=== PATIENT | male | born 1960 | race Caucasian/White ===

== ENCOUNTER 2020-02-28 13:17 | Inpatient (IN) | payer MEDICAID ==
[~2020-02-28] VITALS: Ht 170.2 cm; Wt 81.6 kg
--- NOTE | 2020-02-28 13:17 | NUR ---
PT BIBRA FROM HOME C/O SOB FOR 7 DAYS +COVID LAST WEEKEND PER PT, PT IS AAOX4, NOTED RESPIRATORY DISTRESS, HOOKED TO HIGH FLOW NC AND NURSE RN BSN, KEPT RESTED AND COMFORTABLE. WILL CONTINUE TO MONITOR.
--- NOTE | 2020-02-28 13:30 | NUR ---
IV LINE ESTABLISHED LAB DRAWN AND SENT TO LAB.
--- NOTE | 2020-02-28 13:39 | NUR ---
SEEN AND EXAMINED BY .
--- NOTE | 2020-02-28 13:40 | NUR ---
RT AT BEDSIDE FOR BIPAP SET UP.
[2020-02-28] MEDS ORDERED: ACETAMINOPHEN ES 500 MG TABLET ONE (13:41)
[2020-02-28] MEDS ORDERED: DEXAMETHASONE SOD PHOSPHATE 10 MG/ML VIAL ONE (13:41)
--- NOTE | 2020-02-28 13:45 | NUR ---
HARDENING MACHINE OPERATOR AT BEDSIDE FOR XRAY.
[2020-02-28] MEDS ORDERED: ACETAMINOPHEN ES 500 MG TABLET PO ONE (14:00)
[2020-02-28] MEDS ORDERED: DEXAMETHASONE SOD PHOSPHATE 10 MG/ML VIAL IV ONE (14:00)
[2020-02-28] MEDS ORDERED: IV NS 0.9% 1,000 ML IV ONE (14:00)
[2020-02-28 14:02] LABS: BASOPHILS # (AUTO) 0.2 /CMM (0.0-0.2); BASOPHILS % (AUTO) 1.3 % (0.0-2.0); HEMATOCRIT 41 % (39-51); HEMOGLOBIN 13.2 g/dL (13.5-17.5); LYMPHOCYTES # (AUTO) 0.3 /CMM (0.8-4.8); LYMPHOCYTES % (AUTO) 1.6 % (20.0-44.0); MEAN CORPUSCULAR HGB CONC 33 g/dl (31.0-36.0); MEAN CORPUSCULAR VOLUME 88 fL (80-96); MONOCYTES # (AUTO) 0.6 /CMM (0.1-1.30); MONOCYTES % (AUTO) 3.2 % (2.0-12.0); NEUTROPHILS # (AUTO) 16.8 /CMM (1.8-8.9); NEUTROPHILS % (AUTO) 93.9 % (43.0-81.0); PLATELET COUNT (AUTO) 324 /CMM (150-450); RED BLOOD CELL COUNT(AUTO) 4.61 MIL/uL (4.5-6.0); WHITE BLOOD COUNT (AUTO) 17.9 K/uL (4.3-11.0)
[2020-02-28 14:15] LABS: CALCIUM, SERUM 8.6 mg/dL (8.5-10.1); CREATININE 1.4 mg/dL (0.6-1.3); POTASSIUM 3.8 mmol/L (3.5-5.1)
[2020-02-28 14:28] LABS: ALBUMIN 2.3 g/dL (3.4-5.0); BILIRUBIN,TOTAL 0.5 mg/dL (0.2-1.0); TOTAL PROTEIN, SERUM 7.9 g/dL (6.4-8.2)
[2020-02-28] MEDS ORDERED: AZITHROMYCIN 500 MG in IV D5W 250 ML IV ONE (14:30)
[2020-02-28] MEDS ORDERED: CEFTRIAXONE 1GM BAG (ER ONLY) 50 ML IV ONE (14:30)
[2020-02-28] MEDS ORDERED: CEFTRIAXONE 1GM BAG (ER ONLY) 1 GM/50 ML PIGGYBACK IV ONE (14:30)
[2020-02-28] MEDS ORDERED: IV NS 0.9% 500 ML IV ONE (14:30)
[2020-02-28] MEDS ORDERED: ACETAMINOPHEN 650 MG/SUPP.RECT RC ONE (14:30)
--- NOTE | 2020-02-28 15:21 | NUR ---
[facility] CALLED STAFF PHYSICAL THERAPY ASSISTANT PAGED.
[2020-02-28 15:35] LABS: ABG BASE EXCESS -5.9 mmol/L; ABG OXYGEN SATURATION 97.6 % (92.0-98.5); ABG PCO2 24.6 mmHg (35.0-45.0); ABG PH 7.443 (7.350-7.450); ABG PO2 114.5 mmHg (75.0-100.0); AaDO2 573.9 mmHg; COHb 0.5 % (0.5-1.5); MetHb 0.2 % (0.0-1.5); O2Hb 96.9 % (94.0-97.0); SITE, ABG Right Radial; VENT MODE, BG ST 20/8 100%
--- NOTE | 2020-02-28 15:44 | NUR ---
PT IS PLACED BACK ON HIGH FLOW NASAL CAN PER .
[2020-02-28 15:52] LABS: D-DIMER 3.22 mg/L(FEU (0.17-0.50)
--- NOTE | 2020-02-28 16:09 | NUR ---
LAB CALLED LACTIC ACID 3.6 VASQUEZ INFORMED.
[2020-02-28 16:22] LABS: CREATINE KINASE, TOTAL 132 U/L (39-308); FERRITIN 657 ng/mL (8-388)
[2020-02-28 16:44] LABS: C-REACTIVE PROTEIN 36.4 mg/dL (0.0-0.9)
[2020-02-28] MEDS ORDERED: HYDROCODONE/APAP 5/325MG TABLET PO PRN (17:00)
[2020-02-28] MEDS ORDERED: MAGNESIUM HYDROXIDE 30 ML UDC PO PRN (17:00)
[2020-02-28] MEDS ORDERED: ZOLPIDEM TARTRATE 5 MG TABLET PO PRN (17:00)
[2020-02-28] MEDS ORDERED: APIXABAN 2.5 MG TABLET PO SCH (17:00)
[2020-02-28] MEDS ORDERED: Z GUARD REMEDY 2 OZ OINT TP PRN (17:00)
[2020-02-28] MEDS ORDERED: ONDANSETRON HCL/PF 4 MG/2 ML VIAL IVP PRN (17:00)
--- NOTE | 2020-02-28 18:04 | NUR ---
Jose dubon in ED - 02/28/20 at 1811 by KAREN SARITHA NOT GIVEN MEDS NOT AVAILABLE PER DEREK AT PHARMACY.
--- NOTE | 2020-02-28 18:11 | NUR ---
ELIQUIS NOT GIVEN PT IS ON BIPAP.
[2020-02-28 18:54] LABS: BILIRUBIN,DIRECT 0.4 mg/dL (0.0-0.2)
--- NOTE | 2020-02-28 19:49 | NUR ---
PT REC'D ON BIPAP, PT HERE FOR SOB, COVID+ DIAGNOSED OSH., PT AAOX4, NOTED TACHYPNIC, ON BIPAP SAT ABOVE 95-98%, PT VSS. WCTM
--- NOTE | 2020-02-28 20:00 | NUR ---
MICKEY VILLAR MADE AWARE REGARDING ELIQUIS NON ADMINISTRATION, NEW ORDER FOR HEPARIN WILL BE ADDED PER PRIYA
[2020-02-28] MEDS ORDERED: HEPARIN SODIUM, PORCINE 5000 UNITS/1 ML VIAL ONE (22:43)
[2020-02-29] MEDS: HEPARIN SODIUM, PORCINE 5000 UNITS/1 ML VIAL SQ SCH ×2 (00:07→08:22)
[2020-02-29 03:44] LABS: BASOPHILS % (AUTO) 0.2 % (0.0-2.0); HEMATOCRIT 38 % (39-51); HEMOGLOBIN 12.4 g/dL (13.5-17.5); LYMPHOCYTES # (AUTO) 0.4 /CMM (0.8-4.8); LYMPHOCYTES % (AUTO) 2.7 % (20.0-44.0); MEAN CORPUSCULAR HGB CONC 33 g/dl (31.0-36.0); MEAN CORPUSCULAR VOLUME 89 fL (80-96); MONOCYTES # (AUTO) 0.7 /CMM (0.1-1.30); MONOCYTES % (AUTO) 4.2 % (2.0-12.0); NEUTROPHILS # (AUTO) 14.8 /CMM (1.8-8.9); NEUTROPHILS % (AUTO) 92.9 % (43.0-81.0); PLATELET COUNT (AUTO) 264 /CMM (150-450); RED BLOOD CELL COUNT(AUTO) 4.26 MIL/uL (4.5-6.0); WHITE BLOOD COUNT (AUTO) 15.9 K/uL (4.3-11.0)
[2020-02-29 03:54] LABS: CALCIUM, SERUM 8.7 mg/dL (8.5-10.1); CREATININE 1.3 mg/dL (0.6-1.3); MAGNESIUM 2.7 mg/dL (1.8-2.4); PHOSPHORUS 3.6 mg/dL (2.5-4.9); POTASSIUM 4.4 mmol/L (3.5-5.1)
[2020-02-29 04:22] LABS: C-REACTIVE PROTEIN 57.3 mg/dL (0.0-0.9)
--- NOTE | 2020-02-29 07:30 | NUR ---
Received patient in bed, awake, and alert, able to make needs known. Verbally responsive. On bipap tolerated well, no labored breathing noted. Connected to the monitor and pulse ox. Kept comfortable, will continue to monitor accordingly.
[2020-02-29] MEDS ORDERED: DEXAMETHASONE SOD PHOSPHATE 10 MG/ML VIAL ONE (07:47)
[2020-02-29] MEDS ORDERED: HEPARIN SODIUM, PORCINE 5000 UNITS/1 ML VIAL ONE (07:47)
--- NOTE | 2020-02-29 08:15 | NUR ---
RT Pt taken off BiPAP and placed on high flow nasal cannula 60L and 100% FiO2. Pt is awake and alert and looks comfortable on high flow. No SOB or respiratory distress noted at this time. Addendum: 02/29/20 at 0827 by CAROLE CALVIN RT Amended: Links added.
[2020-02-29] MEDS: DEXAMETHASONE SOD PHOSPHATE 10 MG/ML VIAL IV SCH (08:21)
--- NOTE | 2020-02-29 08:33 | NUR ---
Patient o2 titrated down. d/c bipap. Clinically holding on HFNC 60L/100% with 93% o2 saturation
--- NOTE | 2020-02-29 09:07 | NUR ---
RT Pt placed with dual set up HFNC and non-rebreather due to SpO2 at 88%. With addition of 15L non-rebreather pt SpO2 is now 91%. Addendum: 02/29/20 at 0909 by CAROLE CALVIN RT Amended: Links added.
[2020-02-29] MEDS: IV NS 0.9% 1,000 ML IV PRN (09:30)
[2020-02-29 10:38] LABS: ABG BASE EXCESS -2.1 mmol/L; ABG OXYGEN SATURATION 95.2 % (92.0-98.5); ABG PCO2 27.8 mmHg (35.0-45.0); ABG PH 7.478 (7.350-7.450); ABG PO2 75.8 mmHg (75.0-100.0); AaDO2 609.4 mmHg; COHb 0.1 % (0.5-1.5); MetHb 0.1 % (0.0-1.5); SITE, ABG Right Radial; VENT MODE, BG HFNC 60L/100% + NRB 15L
[2020-02-29] MEDS ORDERED: DEXAMETHASONE SOD PHOSPHATE 6 MG in IV D5W 50 ML IV SCH (12:00)
[2020-02-29] MEDS ORDERED: REMDESIVIR (CHARGED) 200 MG, *LOADING DOSE 1 EA in IV NS 0.9% 210 ML IV ONE (12:00)
[2020-02-29] MEDS: AZITHROMYCIN 500 MG in IV D5W 250 ML IV SCH (13:00)
[2020-02-29] MEDS: CEFTRIAXONE 1 G in IV D5W 50 ML IV SCH (14:00)
[2020-02-29] MEDS ORDERED: HYDROCODONE/APAP 5/325MG TABLET ONE (15:52)
[2020-02-29] MEDS: APIXABAN 5 MG TABLET PO SCH (16:44)
--- NOTE | 2020-02-29 23:04 | NUR ---
REPORT GIVEN TO ALIRIO WAGGONER AT ICU FOR LISA.
[2020-02-29 23:27] VITALS: BP 137/74
--- NOTE | 2020-02-29 23:28 | NUR ---
PATIENT TAKEN UP TO ASSIGNED ROOM FOR LISA.
[2020-03-01] VITALS (24 sets, daily range): BP systolic 123–157; BP diastolic 70–97
[2020-03-01] MEDS: IV NS 0.9% 1,000 ML IV PRN (00:23)
--- NOTE | 2020-03-01 01:00 | NUR ---
RN NOTES ADMITTED PATIENT AOX4. WITH HIFLOW O2 @ 60 L AND FIO2 100% WITH NON REBREATHER MASK ON @ 15LPM TOLERATED WELL. BREATHING EVEN AND UNLBORED DENIES SOB . SATURATION BETWEEN 88-92 %. AFEBRILE. VSS . PATIENT USED URINAL FOR BLADDER. AMBULATE WITH STAND BY ASSIST. IV SITE ON LAC AND RH INTACT AND PATENT STARTED WITH NS @ 100 ML/HR INTACT AND PATENT. KEPT PT CLEAN AND DRY. CALL LIGHT KEPT WITHIN EASY REACH INSTRUCTED PROVIDED.
[2020-03-01] MEDS: ACETAMINOPHEN 325 MG TABLET PO PRN (01:12)
[2020-03-01 04:16] LABS: BASOPHILS % (AUTO) 0.1 % (0.0-2.0); HEMATOCRIT 37 % (39-51); LYMPHOCYTES # (AUTO) 0.4 /CMM (0.8-4.8); LYMPHOCYTES % (AUTO) 2.1 % (20.0-44.0); MEAN CORPUSCULAR HGB CONC 32 g/dl (31.0-36.0); MEAN CORPUSCULAR VOLUME 88 fL (80-96); MONOCYTES # (AUTO) 0.6 /CMM (0.1-1.30); MONOCYTES % (AUTO) 3.2 % (2.0-12.0); NEUTROPHILS # (AUTO) 18.2 /CMM (1.8-8.9); NEUTROPHILS % (AUTO) 94.6 % (43.0-81.0); PLATELET COUNT (AUTO) 279 /CMM (150-450); WHITE BLOOD COUNT (AUTO) 19.2 K/uL (4.3-11.0)
[2020-03-01 04:32] LABS: ALBUMIN 1.8 g/dL (3.4-5.0); BILIRUBIN,DIRECT 0.2 mg/dL (0.0-0.2); BILIRUBIN,TOTAL 0.2 mg/dL (0.2-1.0); CALCIUM, SERUM 8.1 mg/dL (8.5-10.1); CREATININE 1.1 mg/dL (0.6-1.3); POTASSIUM 3.6 mmol/L (3.5-5.1); TOTAL PROTEIN, SERUM 6.3 g/dL (6.4-8.2)
--- NOTE | 2020-03-01 07:00 | NUR ---
RN NOTES PATIENT TOLERATED HFLOW O2 WITH NRB SATURATION BETWEEN 88-96%. AFEBRILE. NO SOB OR ACUTE RESPIRATORY DISTRESS. DENIES PAIN AFTER TYLENOL ADMNISTERED. NO MORE HEADACHES COMPLAINED. CONTINUE ON IVF ORDERED. KEPT PT CLEAN AND DRY. CALL LIGHT KEPT WITHIN EASY REACH CONTINUOUSLY REMINDED TO USED FOR ASSISTANCE. ISOLATION PRECAUTION FOR COVID 19 STRICTLY OBSERVED.
--- NOTE | 2020-03-01 07:30 | NUR ---
RN OPENING NOTES PATIENT PRESENT IN BED, A/OX4, HOB ELEVATED, SITTING COMFORTABLY, DENIES PAIN OR DISCOMFORT, ON HIGH FLOW NC @ 60L AND NON-REBREATHER MASK @15 COLE/MIN, TOLERATING WELL, SPO2 IS 91-94%, NO SOB OR DISTRESS NOTED, URINAL AND COMMODE AT BED SITE, NST ON TELE -MONITOR, IV LINES ON R HAND AND L AC, BOTH PATENT, FLUSHED AND INTACT, SAFETY MEASURES IN PLACE, CALL LIGHT IN REACH, HOB ELEVATED, BED IS LOCKED, IN LOWEST POSITION, WILL CONT TO MONITOR
[2020-03-01] MEDS: DEXAMETHASONE SOD PHOSPHATE 10 MG/ML VIAL IV SCH (08:09)
[2020-03-01] MEDS: APIXABAN 5 MG TABLET PO SCH ×2 (08:12→17:25)
[2020-03-01] MEDS ORDERED: REMDESIVIR (CHARGED) 100 MG in IV NS 0.9% 230 ML IV SCH (10:00)
[2020-03-01] MEDS: REMDESIVIR (CHARGED) 100 MG in IV NS 0.9% 100 ML IV SCH (11:56)
[2020-03-01] MEDS: AZITHROMYCIN 500 MG in IV D5W 250 ML IV SCH (13:07)
[2020-03-01] MEDS: CEFTRIAXONE 1 G in IV D5W 50 ML IV SCH (13:59)
--- NOTE | 2020-03-01 19:19 | NUR ---
RN CLOSING NOTES PATIENT REMAINS IN ROOM, TOLERATING SETTINGS WELL, CLEANED, EDUCATION PROVIDED, MEDICATIONS GIVEN, WILL ENDORSE TO PM SHIFT RN FOR LISA
[2020-03-02] VITALS (30 sets, daily range): BP systolic 74–167; BP diastolic 44–109
[2020-03-02 04:19] LABS: BASOPHILS % (AUTO) 0.1 % (0.0-2.0); HEMATOCRIT 42 % (39-51); HEMOGLOBIN 13.7 g/dL (13.5-17.5); LYMPHOCYTES # (AUTO) 0.4 /CMM (0.8-4.8); LYMPHOCYTES % (AUTO) 2.4 % (20.0-44.0); MEAN CORPUSCULAR HGB CONC 32 g/dl (31.0-36.0); MEAN CORPUSCULAR VOLUME 88 fL (80-96); MONOCYTES # (AUTO) 0.3 /CMM (0.1-1.30); MONOCYTES % (AUTO) 1.8 % (2.0-12.0); NEUTROPHILS # (AUTO) 16.7 /CMM (1.8-8.9); NEUTROPHILS % (AUTO) 95.7 % (43.0-81.0); PLATELET COUNT (AUTO) 246 /CMM (150-450); RED BLOOD CELL COUNT(AUTO) 4.78 MIL/uL (4.5-6.0); WHITE BLOOD COUNT (AUTO) 17.5 K/uL (4.3-11.0)
[2020-03-02 04:39] LABS: BILIRUBIN,DIRECT 0.3 mg/dL (0.0-0.2); BILIRUBIN,TOTAL 0.5 mg/dL (0.2-1.0); CALCIUM, SERUM 8.1 mg/dL (8.5-10.1); CREATININE 1.1 mg/dL (0.6-1.3); POTASSIUM 3.8 mmol/L (3.5-5.1); TOTAL PROTEIN, SERUM 6.8 g/dL (6.4-8.2)
--- NOTE | 2020-03-02 07:25 | NUR ---
RN NOTES PATIENT REMAINED CALM AND COOPERATIVE. NOTED THIS MORNIGN THAT PATIENT IS DESATING AND REMAINED ON 82-86% INFORMED AMADEO WITH NEW ORDER OF STAT CXR AND ABG.
--- NOTE | 2020-03-02 07:30 | NUR ---
RN OPENING NOTES PATIENT PRESENT IN BED, A/OX4, HOB ELEVATED, SITTING COMFORTABLY, DENIES PAIN OR DISCOMFORT, ON HIGH FLOW NC @ 60L AND NON-REBREATHER MASK @15 COLE/MIN, TOLERATING WELL, SPO2 IS 84-89, LABORED RESPIRATIONS NOTED, URINAL AND COMMODE AT BED SITE, NST ON TELE -MONITOR, IV LINES ON R HAND AND L AC, BOTH PATENT, FLUSHED AND INTACT, SAFETY MEASURES IN PLACE, CALL LIGHT IN REACH, HOB ELEVATED, BED IS LOCKED, IN LOWEST POSITION, WILL CONT TO MONITOR
[2020-03-02 08:29] LABS: ABG BASE EXCESS -1.3 mmol/L; ABG PCO2 24.9 mmHg (35.0-45.0); ABG PH 7.521 (7.350-7.450); ABG PO2 54.6 mmHg (75.0-100.0); AaDO2 633.5 mmHg; COHb 0.8 % (0.5-1.5); O2Hb 90.3 % (94.0-97.0); SITE, ABG Left Radial; VENT MODE, BG HFNC 60L + NRB (DUAL SETU
[2020-03-02] MEDS: DEXAMETHASONE SOD PHOSPHATE 10 MG/ML VIAL IV SCH (08:40)
[2020-03-02] MEDS: APIXABAN 5 MG TABLET PO SCH ×2 (08:41→16:53)
[2020-03-02] MEDS: AZITHROMYCIN 500 MG in IV D5W 250 ML IV SCH (11:26)
[2020-03-02] MEDS: REMDESIVIR (CHARGED) 100 MG in IV NS 0.9% 100 ML IV SCH (13:29)
[2020-03-02] MEDS: CEFTRIAXONE 1 G in IV D5W 50 ML IV SCH (14:36)
[2020-03-02 16:18] LABS: ABG BASE EXCESS -0.4 mmol/L; ABG OXYGEN SATURATION 84.4 % (92.0-98.5); ABG PCO2 29.7 mmHg (35.0-45.0); ABG PH 7.485 (7.350-7.450); ABG PO2 45.8 mmHg (75.0-100.0); AaDO2 637.5 mmHg; COHb 0.8 % (0.5-1.5); MetHb 0.1 % (0.0-1.5); O2Hb 83.6 % (94.0-97.0); SITE, ABG Left Radial
--- NOTE | 2020-03-02 16:31 | NUR ---
RN NOTE Patient's SPO2 went down to 83-87% through the day. Per D Peleg patient required to have intubation Patient is aware, agreed , education provided, contacted family . Dr Mullins and RT team at bed site, initiating intubation
[2020-03-02] MEDS: PROPOFOL 100 ML IV PRN ×4 (16:43→23:05)
[2020-03-02 17:21] LABS: ABG BASE EXCESS -4.7 mmol/L; ABG OXYGEN SATURATION 98.3 % (92.0-98.5); ABG PCO2 48.7 mmHg (35.0-45.0); ABG PO2 135.7 mmHg (75.0-100.0); AaDO2 528.6 mmHg; COHb 0.6 % (0.5-1.5); MetHb 0.2 % (0.0-1.5); O2Hb 97.5 % (94.0-97.0); SITE, ABG Left Radial; VENT MODE, BG AC 24 450 +12 100%
--- NOTE | 2020-03-02 17:58 | NUR ---
fever 101.1 will administer Tylenol prn
[2020-03-02] MEDS: ACETAMINOPHEN 325 MG TABLET PO PRN (17:59)
[2020-03-02] MEDS ORDERED: ROCURONIUM BROMIDE 50 MG/5 ML IV ONE (18:51)
[2020-03-02] MEDS ORDERED: ETOMIDATE 2 MG/ML VIAL IV ONE (18:51)
[2020-03-02] MEDS ORDERED: PROPOFOL 200 MG/20 ML VIAL IV ONE (18:51)
--- NOTE | 2020-03-02 18:59 | NUR ---
BP NOTED TO BE DECREASED, 77/46, HR 103, CONTATCTED DR CASTANEDA, PLACED ORDER FOR AJIT, WILL CONTACT PHARMACY STAT
--- NOTE | 2020-03-02 19:00 | NUR ---
RN NOTE RECEIVED PT IN BED, SEDATED. PATIENT IN NO S/SX OF ACUTE DISTRESS AT THIS TIME. PATIENT'S BREATHING IS EVEN AND UNLABORED. PATIENT IS INTUBATED/ET TUBE CONNECTED TO MECHANICAL VENT WITH SETTINGS PRESCRIBED, TOLERATING WELL, SATURATION AT 97%. PATIENT IS SR ON THE MONITOR, SR IS 82. NOTED IV SITE AT RH 18G, AND LAC 20G, PATENT AND FLUSHING WELL, NO S/S OF INFECTION OR INFILTRATION, WITH DIPRIVAN INFUSING AT 75 MCG, AND AJIT AT 1 MCG. ORDOÑEZ CATHETER CONNECTED TO URINE BAG IN PLACE, DRAINING TO A CLEAR, YELLOW OUTPUT. SAFETY MEASURES IMPLEMENTED. PATIENT BED ALARM IS ON. HEAD OF BED ELEVATED. BED IS LOCKED, IN LOWEST POSITION AND SIDE RAILS UP. CALL LIGHT WITHIN REACH OF THE PATIENT. WILL CONTINUE TO MONITOR AND REASSESS FOR ANY CHANGES.
--- NOTE | 2020-03-02 19:33 | NUR ---
RN CLOSING NOTES PATIENT PRESENT IN BED SITE, INTUBATED AND SEDATED, TOLERATING VENT SETTINGS WELL, SPO2 IS 98%, RESPIRATIONS EVEN, HR IS DECREASED, INITIATING AJIT DRIP, COMFORT NEEDS ATTENDED, SAFETY MEASURES IN PLACE, ENDORSED TO PM SHIFT RN FOR LISA
[2020-03-02] MEDS: PHENYLEPHRINE 100 MG in IV NS 0.9% 240 ML IV PRN (20:25)
--- NOTE | 2020-03-02 21:40 | NUR ---
RN NOTE NOTED DR LA'S ORDER OF TV 475. ADVISED BY RT, [facility] VENT NOT CONFIGURED TO DO BY 5'S. DR CHILDS WAS NOTIFIED, RESPONDED WITH ORDERS TO CHANGE TV TO 470. ALSO RECEIVED ORDERS FOR PICC LINE INSERTION. LARRIMAN MADE AWARE.
[2020-03-03] VITALS (24 sets, daily range): BP systolic 81–128; BP diastolic 51–78
[2020-03-03] MEDS: ACETAMINOPHEN 325 MG TABLET PO PRN (01:48)
[2020-03-03] MEDS: PROPOFOL 100 ML IV PRN ×6 (02:43→20:30)
[2020-03-03 04:10] LABS: ALBUMIN 1.8 g/dL (3.4-5.0); BILIRUBIN,DIRECT 0.5 mg/dL (0.0-0.2); BILIRUBIN,TOTAL 0.6 mg/dL (0.2-1.0); CALCIUM, SERUM 8.5 mg/dL (8.5-10.1); CREATININE 1.5 mg/dL (0.6-1.3); POTASSIUM 4.1 mmol/L (3.5-5.1); TOTAL PROTEIN, SERUM 6.6 g/dL (6.4-8.2)
[2020-03-03 04:56] LABS: BASOPHILS % (AUTO) 0.1 % (0.0-2.0); HEMATOCRIT 42 % (39-51); HEMOGLOBIN 13.6 g/dL (13.5-17.5); LYMPHOCYTES # (AUTO) 0.5 /CMM (0.8-4.8); LYMPHOCYTES % (AUTO) 1.9 % (20.0-44.0); MEAN CORPUSCULAR HGB CONC 32 g/dl (31.0-36.0); MEAN CORPUSCULAR VOLUME 89 fL (80-96); MONOCYTES # (AUTO) 0.3 /CMM (0.1-1.30); MONOCYTES % (AUTO) 1.4 % (2.0-12.0); NEUTROPHILS # (AUTO) 24.6 /CMM (1.8-8.9); NEUTROPHILS % (AUTO) 96.6 % (43.0-81.0); PLATELET COUNT (AUTO) 257 /CMM (150-450); RED BLOOD CELL COUNT(AUTO) 4.76 MIL/uL (4.5-6.0); WHITE BLOOD COUNT (AUTO) 25.4 K/uL (4.3-11.0)
--- NOTE | 2020-03-03 06:00 | NUR ---
RN NOTE TELEPHONE CALL RECEIVED FROM BRAD SMALL, PATIENT'S SON, GAVE HIS CONSENT FOR PATIENT TO HAVE PICC LINE INSERTION. ATTENDING PSYCHIATRIST MADE AWARE. CONSENT SIGNED AND PLACED IN CHART.
[2020-03-03 07:48] LABS: ABG BASE EXCESS -3.2 mmol/L; ABG OXYGEN SATURATION 96.9 % (92.0-98.5); ABG PCO2 33.4 mmHg (35.0-45.0); ABG PH 7.409 (7.350-7.450); AaDO2 407.3 mmHg; COHb 0.5 % (0.5-1.5); O2Hb 96.4 % (94.0-97.0); PEEP,BG 12 cm H2O; SITE, ABG Right Radial; VT, ABG 470 mL
[2020-03-03] MEDS: APIXABAN 5 MG TABLET PO SCH ×2 (10:37→18:21)
[2020-03-03] MEDS: DEXAMETHASONE SOD PHOSPHATE 10 MG/ML VIAL IV SCH (10:41)
--- NOTE | 2020-03-03 10:49 | NUR ---
Social Service Phone Call. FLORES attempts to contact cnc field service engineer Rashida Camejo [facility] ([phone]), [address], [place] [address] requesting a letter head admission from the hospital. FLORES left a voice mail at 845am directing the Rashida Camejo ([phone]) to contact medical records ([phone] extension [phone]) for assistance. Plan: [phone] for requesting a letterhead proof of admission.
[2020-03-03] MEDS: REMDESIVIR (CHARGED) 100 MG in IV NS 0.9% 100 ML IV SCH (12:25)
[2020-03-03] MEDS: CEFTRIAXONE 1 G in IV D5W 50 ML IV SCH (13:55)
[2020-03-03] MEDS: AZITHROMYCIN 500 MG in IV D5W 250 ML IV SCH (14:28)
[2020-03-03] MEDS: PHENYLEPHRINE 100 MG in IV NS 0.9% 240 ML IV PRN (17:49)
--- NOTE | 2020-03-03 19:45 | NUR ---
RN NOTES RECEIVED PT IN BED, INTUBATED AND SEDATED.WITH VENT SETTINGS AC28 TV470 [id number]% AND PEEP12 . NO DISTRESS NOTED. O2 SAT AT 94 %. TELE MONITOR SHOWS SR WITH HR OF 71. NGT IN PLACE AND PATENT ON R. NARE WITH <10 CC RESIDUAL. ORDOÑEZ CATH INDWELLING WELL WITH CLEAR YELLOW URINE OUTPUT. PT WITH NEW PICC LINE ON JAMIN PATENT AND INTACT, FLUSHED. NO SIGNS OF INFECTION. ALSO PT WITH IV LINES ON RH AND LAC BOTH PATENT AND FLUSHING GOOD. PT ON PROPOFOL AT 75MCG/KG/MIN AND NEOSYNEPHRINE AT 0.8MCG/KG/MIN. ALL INFUSING WELL. WITH BILATERAL SOFT WRISTS RESTRAINTS, CHECKED FOR CIRCULATION AND SKIN. WILL CONTINUE TO MONITOR. ALL SAFETY MEASURED IMPLEMENTED PER PROTOCOL. BED LOCKED IN LOWEST POSITION. BED ALARM ON.
[2020-03-03] MEDS: CEFEPIME 2 GM in IV D5W 100 ML IV SCH (21:09)
[2020-03-04] VITALS (69 sets, daily range): BP systolic 78–141; BP diastolic 41–75
[2020-03-04] MEDS: PROPOFOL 100 ML IV PRN ×8 (00:01→21:50)
--- NOTE | 2020-03-04 00:05 | NUR ---
RN NOTE NOTED WITH BP 141/61 HR 60. PT CURRENTLY ON NEOSYNEPHRINE AT O.8MCG/KG/MIN. TITRATED TO 0.7MCG/KG/MIN. WILL CONTINUE TO MONITOR.
[2020-03-04 04:19] LABS: EOSINOPHILS % (AUTO) 0.3 % (0.0-6.0); HEMATOCRIT 38 % (39-51); HEMOGLOBIN 12.2 g/dL (13.5-17.5); LYMPHOCYTES # (AUTO) 0.6 /CMM (0.8-4.8); LYMPHOCYTES % (AUTO) 2.6 % (20.0-44.0); MEAN CORPUSCULAR HGB CONC 32 g/dl (31.0-36.0); MEAN CORPUSCULAR VOLUME 90 fL (80-96); MONOCYTES # (AUTO) 0.3 /CMM (0.1-1.30); MONOCYTES % (AUTO) 1.4 % (2.0-12.0); NEUTROPHILS # (AUTO) 22.3 /CMM (1.8-8.9); NEUTROPHILS % (AUTO) 95.7 % (43.0-81.0); PLATELET COUNT (AUTO) 240 /CMM (150-450); RED BLOOD CELL COUNT(AUTO) 4.27 MIL/uL (4.5-6.0); WHITE BLOOD COUNT (AUTO) 23.3 K/uL (4.3-11.0)
[2020-03-04 04:38] LABS: BILIRUBIN,DIRECT 0.3 mg/dL (0.0-0.2); BILIRUBIN,TOTAL 0.4 mg/dL (0.2-1.0); CALCIUM, SERUM 7.8 mg/dL (8.5-10.1); CREATININE 1.4 mg/dL (0.6-1.3); POTASSIUM 4.8 mmol/L (3.5-5.1); TOTAL PROTEIN, SERUM 5.9 g/dL (6.4-8.2)
[2020-03-04 04:59] LABS: ALBUMIN 1.4 g/dL (3.4-5.0)
[2020-03-04 06:05] LABS: ABG OXYGEN SATURATION 94.2 % (92.0-98.5); ABG PCO2 32.9 mmHg (35.0-45.0); ABG PH 7.417 (7.350-7.450); ABG PO2 73.5 mmHg (75.0-100.0); AaDO2 354.2 mmHg; COHb 0.3 % (0.5-1.5); MetHb 0.3 % (0.0-1.5); O2Hb 93.6 % (94.0-97.0); PEEP,BG 12 cm H2O; SITE, ABG Right Radial; VT, ABG 470 mL
--- NOTE | 2020-03-04 07:00 | NUR ---
RN NOTES PT REMAINS IN BED, INTUBATED AND SEDATED. TOLERATING VENT SETTINGS, O2 SAT AT 93 %. NO SIGNS OF DISTRESS. TELE SHOWS NSR HR 63. NGT IN PLACE. PT ON PROPOFOL 75MCG/KG/MIN AND NEOSYNEPHRINE AT 0.4MCG/KG/MIN, TITRATED PER PROTOCOL. BOTH INFUSING WELL ON FAY PICC LINE. NO SIGNS OF INFILTRATION. ORDOÑEZ IN PLACE WITH CLEAR URINE OUTPUT. ON FREQUENT VISUAL CHECKS. BILATERAL SOFT WRIST RESTRAINTS ON, WITH GOOD CIRCULATION, NO SKIN BREAKDOWN NOTED. DUE IV ATB GIVEN ORDERED, PT REMAINS AFEBRILE. BED LOCKED IN LOWEST POSITION. SIDE RAILS UP X 2. ISOLATION PRECAUTION MAINTAINED. WILL ENDORSE TO NEXT SHIFT NURSE FOR LISA.
--- NOTE | 2020-03-04 07:15 | NUR ---
ROLL CAPPER NOTES RECEIVED PATIENT SEDATED , RESPONSIVE TO PAIN STIMULI , TOLERATING CURRENT VENT SETTINGS WITH SPO2 OF 97% , SR 75 ON BEDSIDE MONITOR , FC DRAINING VIA GRAVITY , R NARE NGT CLAMPED , JAMIN PICC WITH DIPRIVAN @ 75MCG/KG/MIN , AJIT @ 0.4MCG/KG/MIN INFUSING WELL , ALL NEEDS ATTENDED , WILL CONTINUE TO MONITOR .
[2020-03-04] MEDS: CEFEPIME 2 GM in IV D5W 100 ML IV SCH ×2 (08:46→20:38)
[2020-03-04] MEDS: DEXAMETHASONE SOD PHOSPHATE 10 MG/ML VIAL IV SCH (08:46)
[2020-03-04] MEDS: APIXABAN 5 MG TABLET PO SCH ×2 (08:48→16:07)
[2020-03-04] MEDS: REMDESIVIR (CHARGED) 100 MG in IV NS 0.9% 100 ML IV SCH (11:50)
[2020-03-05] VITALS (47 sets, daily range): BP systolic 87–114; BP diastolic 50–75
[2020-03-05] MEDS: PROPOFOL 100 ML IV PRN ×7 (00:29→21:33)
[2020-03-05 05:05] LABS: BASOPHILS % (AUTO) 0.2 % (0.0-2.0); EOSINOPHILS % (AUTO) 0.1 % (0.0-6.0); HEMATOCRIT 37 % (39-51); HEMOGLOBIN 11.8 g/dL (13.5-17.5); LYMPHOCYTES # (AUTO) 0.4 /CMM (0.8-4.8); LYMPHOCYTES % (AUTO) 2.2 % (20.0-44.0); MEAN CORPUSCULAR HGB CONC 32 g/dl (31.0-36.0); MEAN CORPUSCULAR VOLUME 89 fL (80-96); MONOCYTES # (AUTO) 0.5 /CMM (0.1-1.30); MONOCYTES % (AUTO) 2.3 % (2.0-12.0); NEUTROPHILS # (AUTO) 19.2 /CMM (1.8-8.9); NEUTROPHILS % (AUTO) 95.2 % (43.0-81.0); PLATELET COUNT (AUTO) 264 /CMM (150-450); RED BLOOD CELL COUNT(AUTO) 4.15 MIL/uL (4.5-6.0); WHITE BLOOD COUNT (AUTO) 20.2 K/uL (4.3-11.0)
[2020-03-05 05:21] LABS: CALCIUM, SERUM 8.1 mg/dL (8.5-10.1); CREATININE 1.4 mg/dL (0.6-1.3); MAGNESIUM 3.2 mg/dL (1.8-2.4); PHOSPHORUS 4.6 mg/dL (2.5-4.9); POTASSIUM 4.8 mmol/L (3.5-5.1)
--- NOTE | 2020-03-05 07:15 | NUR ---
FIRE CONTROL SYSTEM INSTALLER NOTES RECEIVED PATIENT SEDATED , RESPONSIVE TO PAIN STIMULI , TOLERATING CURRENT VENT SETTINGS WITH SPO2 OF 92% , SR 85 ON BEDSIDE MONITOR , FC DRAINING VIA GRAVITY , R NARE NGT CLAMPED , JAMIN PICC WITH DIPRIVAN @ 60 MCG/KG/MIN , AJIT @ 0.4MCG/KG/MIN INFUSING WELL , ALL NEEDS ATTENDED , WILL CONTINUE TO MONITOR .
[2020-03-05 08:17] LABS: ABG BASE EXCESS -2.9 mmol/L; ABG OXYGEN SATURATION 92.6 % (92.0-98.5); ABG PCO2 34.1 mmHg (35.0-45.0); ABG PH 7.408 (7.350-7.450); ABG PO2 66.6 mmHg (75.0-100.0); AaDO2 359.8 mmHg; COHb 0.2 % (0.5-1.5); MetHb 0.1 % (0.0-1.5); O2Hb 92.3 % (94.0-97.0); PEEP,BG 12 cm H2O; SITE, ABG Right Radial; VENT MODE, BG AC 26 FIO2 %65
[2020-03-05] MEDS: CEFEPIME 2 GM in IV D5W 100 ML IV SCH ×2 (09:09→21:11)
[2020-03-05] MEDS: DEXAMETHASONE SOD PHOSPHATE 10 MG/ML VIAL IV SCH (09:09)
[2020-03-05] MEDS: APIXABAN 5 MG TABLET PO SCH ×2 (09:13→17:37)
[2020-03-05] MEDS: IV D5/ 0.9% NACL 1,000 ML IV PRN (10:26)
--- NOTE | 2020-03-05 12:31 | NUR ---
CADDY MASTER NOTES SEEN AND EVALUATED BY PRIYA AREVALO , DISCUSSED LABS , VENT SETTINGS , PT AFEBRILE , ON AJIT @ 0.4MCG/KG/MIN , SPO2 OF 92% VIA MECH VENT SETTINSG ORDERED , PER TURNSTILE COLLECTOR OK TO START NGT / OGT FEEDING PER DIETARY RECOMMENDATION , ORDER CARRIED OUT
[2020-03-05] MEDS: GLUCERNA 1.2 1,000 ML BOTTLE NG PRN (15:04)
[2020-03-05] MEDS: PROSOURCE / PROSTAT (PYXIS) 30 ML UDC GT SCH (17:37)
--- NOTE | 2020-03-05 21:00 | NUR ---
ICU/MEDIA ASSOCIATE TYLENOL GIVEN FOR FEVER 100.3. WILL MONITOR THIS PT AND HIS TEMP.
[2020-03-05] MEDS: ACETAMINOPHEN 325 MG TABLET PO PRN (21:12)
[2020-03-06] VITALS (75 sets, daily range): BP systolic 88–129; BP diastolic 56–78
[2020-03-06] MEDS: PROPOFOL 100 ML IV PRN ×7 (00:50→22:58)
[2020-03-06] MEDS: IV D5/ 0.9% NACL 1,000 ML IV PRN (04:35)
[2020-03-06 05:15] LABS: EOSINOPHILS % (AUTO) 0.6 % (0.0-6.0); HEMATOCRIT 37 % (39-51); HEMOGLOBIN 11.7 g/dL (13.5-17.5); LYMPHOCYTES # (AUTO) 0.4 /CMM (0.8-4.8); LYMPHOCYTES % (AUTO) 3.2 % (20.0-44.0); MEAN CORPUSCULAR HGB CONC 32 g/dl (31.0-36.0); MEAN CORPUSCULAR VOLUME 89 fL (80-96); MONOCYTES # (AUTO) 0.3 /CMM (0.1-1.30); MONOCYTES % (AUTO) 2.1 % (2.0-12.0); NEUTROPHILS # (AUTO) 12.8 /CMM (1.8-8.9); NEUTROPHILS % (AUTO) 94.1 % (43.0-81.0); PLATELET COUNT (AUTO) 241 /CMM (150-450); RED BLOOD CELL COUNT(AUTO) 4.12 MIL/uL (4.5-6.0); WHITE BLOOD COUNT (AUTO) 13.7 K/uL (4.3-11.0)
[2020-03-06 06:11] LABS: MAGNESIUM 2.8 mg/dL (1.8-2.4); PHOSPHORUS 4.9 mg/dL (2.5-4.9)
[2020-03-06 07:43] LABS: ABG BASE EXCESS -3.5 mmol/L; ABG OXYGEN SATURATION 90.9 % (92.0-98.5); ABG PCO2 37.4 mmHg (35.0-45.0); ABG PH 7.373 (7.350-7.450); ABG PO2 60.9 mmHg (75.0-100.0); AaDO2 361.9 mmHg; COHb 0.6 % (0.5-1.5); MetHb 0.1 % (0.0-1.5); O2Hb 90.3 % (94.0-97.0); SITE, ABG Right Femoral; VENT MODE, BG AC 28 430 65% +12
[2020-03-06] MEDS: CEFEPIME 2 GM in IV D5W 100 ML IV SCH ×2 (08:26→20:55)
[2020-03-06] MEDS: DEXAMETHASONE SOD PHOSPHATE 10 MG/ML VIAL IV SCH (08:26)
[2020-03-06] MEDS: APIXABAN 5 MG TABLET PO SCH ×2 (08:27→16:43)
[2020-03-06] MEDS: PROSOURCE / PROSTAT (PYXIS) 30 ML UDC GT SCH ×2 (08:28→16:43)
[2020-03-06 09:42] LABS: CREATININE 1.2 mg/dL (0.6-1.3); POTASSIUM 5.4 mmol/L (3.5-5.1)
--- NOTE | 2020-03-06 18:49 | NUR ---
RN NOTES PT REMAINS INTUBATED AND SEDATED, VSS STABLE, WILL ENDORSE TO LEGAL SERVICE SPECIALIST NURSE FOR CONTINUITY OF CARE
--- NOTE | 2020-03-06 19:35 | NUR ---
RN OPENING NOTES RECEIVED PT IN BED, SEDATED WITH DIPRIVAN. ON MECHANICAL VENTILATION. ETT 7.07/04 AT THE LIP AC 28 TV 430 FIO2 75% AND PEEP OF 12. TOLERATING WELL. NO RESP DISTRESS OR SOB. O2 SAT 95%. PT IS NSR AT THIS TIME ON TELE MONITOR HEART RATE OF 70. PT HAS NGT, CLAMPED. AUSCULTATED TO CONFIRM PLACEMENT. RESIDUAL OF 35CC NOTED. PT HAS ORDOÑEZ CATH DRAINING TO GRAVITY, IV LINE JAMIN FLUSHED. DIPRIVAN 80 MCG AMD D5ND @ 50CC/HR. ISOLATION PRECAUTIONS IN PLACE PER PROTOCOL, HOB ELEVATED, BED LOCKED IN LOWEST POSITION, SIDE RAILS UP X3, WILL CONT TO MONITOR.
--- NOTE | 2020-03-06 22:00 | NUR ---
PT DID NOT RECEIVE CALCITROL ORDERED MEDICATION. DRUG NOT AVAILABLE PER NURSING LEAD TECHNICIAN. CHARGE NURSE MADE AWARE. WILL ENDORSE TO AM NURSE. Addendum: 03/06/20 at 2308 by CELE PERAZA RN ERROR, WRONG PATIENT. DISREGARD.
[2020-03-07] VITALS (85 sets, daily range): BP systolic 85–167; BP diastolic 54–97
[2020-03-07 04:59] LABS: EOSINOPHILS % (AUTO) 1.5 % (0.0-6.0); HEMATOCRIT 39 % (39-51); HEMOGLOBIN 12.1 g/dL (13.5-17.5); LYMPHOCYTES # (AUTO) 0.6 /CMM (0.8-4.8); LYMPHOCYTES % (AUTO) 3.2 % (20.0-44.0); MEAN CORPUSCULAR HGB CONC 32 g/dl (31.0-36.0); MEAN CORPUSCULAR VOLUME 90 fL (80-96); MONOCYTES # (AUTO) 0.2 /CMM (0.1-1.30); MONOCYTES % (AUTO) 1.4 % (2.0-12.0); NEUTROPHILS # (AUTO) 16.4 /CMM (1.8-8.9); NEUTROPHILS % (AUTO) 93.9 % (43.0-81.0); PLATELET COUNT (AUTO) 287 /CMM (150-450); RED BLOOD CELL COUNT(AUTO) 4.26 MIL/uL (4.5-6.0); WHITE BLOOD COUNT (AUTO) 17.5 K/uL (4.3-11.0)
[2020-03-07] MEDS: ACETAMINOPHEN 325 MG TABLET PO PRN ×2 (05:21→16:34)
--- NOTE | 2020-03-07 05:29 | NUR ---
PRN TYLENOL ADMINISTERED FOR TEMP OF 100.0 AND NOTED INCREASED HEART RATE. WILL CONT TO MONITOR.
[2020-03-07 05:30] LABS: CALCIUM, SERUM 8.2 mg/dL (8.5-10.1); CREATININE 1.2 mg/dL (0.6-1.3); MAGNESIUM 2.5 mg/dL (1.8-2.4); POTASSIUM 5.1 mmol/L (3.5-5.1)
[2020-03-07] MEDS: PROPOFOL 100 ML IV PRN ×7 (06:17→22:46)
[2020-03-07] MEDS: PROSOURCE / PROSTAT (PYXIS) 30 ML UDC GT SCH ×2 (08:22→16:34)
[2020-03-07] MEDS: CEFEPIME 2 GM in IV D5W 100 ML IV SCH ×2 (08:22→20:45)
[2020-03-07] MEDS: DEXAMETHASONE SOD PHOSPHATE 10 MG/ML VIAL IV SCH (08:23)
[2020-03-07] MEDS: APIXABAN 5 MG TABLET PO SCH ×2 (08:27→16:34)
[2020-03-07] MEDS: LORAZEPAM INJ 2 MG/ML VIAL IV PRN (08:37)
[2020-03-07 09:05] LABS: ABG BASE EXCESS -6.6 mmol/L; ABG OXYGEN SATURATION 93.4 % (92.0-98.5); ABG PCO2 50.2 mmHg (35.0-45.0); ABG PH 7.239 (7.350-7.450); ABG PO2 74.5 mmHg (75.0-100.0); AaDO2 406.9 mmHg; COHb 0.7 % (0.5-1.5); O2Hb 92.7 % (94.0-97.0); SITE, ABG Right Radial; VENT MODE, BG AC 28 430 75% +12
[2020-03-07 15:34] LABS: BILIRUBIN,URINE NEGATIVE (NEGATIVE); COLOR,URINE DARK YELLOW (YELLOW); LEUKOCYTE ESTERASE ,URINE NEGATIVE (NEGATIVE); NITRITE, URINE NEGATIVE (NEGATIVE); PH,URINE 5.5 (5.0-8.0); PROTEIN,URINE 30 mg/dl (NEGATIVE); UGLUCOSE NEGATIVE (NEGATIVE); UROBILINOGEN,URINE 0.2 EU/dL (0.2)
[2020-03-07 15:44] LABS: BACTERIA,URINE 1+ /HPF (None Seen); RBC,URINE TOO NUMEROUS TO COUN /HPF (0-2); SQUAMOUS EPITHELIAL CELL,UR Few /HPF (None Seen); WBC,URINE 0-2 /HPF (0-3)
[2020-03-07 15:45] LABS: COARSE GRANULAR CASTS,URINE Few /LPF (None Seen); URIC ACID CRYSTALS,URINE Few /HPF (None Seen)
[2020-03-07 15:46] LABS: HYALINE CASTS, URINE Few /LPF (None Seen); URINE AMORPHOUS URATE Few /HPF (None Seen)
[2020-03-07] MEDS: IV D5/ 0.9% NACL 1,000 ML IV PRN (16:25)
[2020-03-07] MEDS: GLUCERNA 1.2 1,000 ML BOTTLE NG PRN (16:27)
[2020-03-08] VITALS (61 sets, daily range): BP systolic 77–156; BP diastolic 52–94
[2020-03-08] MEDS: PROPOFOL 100 ML IV PRN ×9 (01:38→23:54)
[2020-03-08] MEDS: IV D5/ 0.9% NACL 1,000 ML IV PRN ×2 (01:55→19:19)
[2020-03-08] MEDS: PHENYLEPHRINE 100 MG in IV NS 0.9% 240 ML IV PRN (04:42)
--- NOTE | 2020-03-08 04:42 | NUR ---
QUALITY CONTROLLER NOTES BP 82/57, NEOSYNEPHRINE DRIP RESTARTED @ 0.5MCG/KG/MIN, WILL MONITOR AND TITRATE PRESSOR ACCORDINGLY
[2020-03-08] MEDS: PROSOURCE / PROSTAT (PYXIS) 30 ML UDC GT SCH ×2 (08:46→16:57)
[2020-03-08] MEDS: CEFEPIME 2 GM in IV D5W 100 ML IV SCH ×2 (08:46→20:01)
[2020-03-08] MEDS: DEXAMETHASONE SOD PHOSPHATE 10 MG/ML VIAL IV SCH (08:46)
[2020-03-08] MEDS: APIXABAN 5 MG TABLET PO SCH ×2 (09:06→17:19)
[2020-03-08 09:21] LABS: ABG BASE EXCESS -6.8 mmol/L; ABG PCO2 39.4 mmHg (35.0-45.0); ABG PH 7.303 (7.350-7.450); ABG PO2 57.4 mmHg (75.0-100.0); AaDO2 435.5 mmHg; MetHb 0.3 % (0.0-1.5); O2Hb 87.8 % (94.0-97.0); PEEP,BG 12 cm H2O; SITE, ABG Right Radial; VT, ABG 430 mL
[2020-03-08] MEDS: GLUCERNA 1.2 1,000 ML BOTTLE NG PRN (16:57)
--- NOTE | 2020-03-08 18:43 | NUR ---
RN CLOSING NOTES PT REMAINS INTUBATED, SEDATED. AJIT OFF AT 1200. NO RESPIRATORY DISTRESS NOTED. TOLERATING TUBE FEEDING WELL. ORDOÑEZ IN PLACE. KEPT COMFORTABLE. WILL ENDORSE FOR CONTINUITY OF CARE
--- NOTE | 2020-03-08 22:00 | NUR ---
REROLLER HAND NOTES ORDOÑEZ CATHETER LEAKING, DIFFICULT TO FLUSH, RESISTANCE NOTED. CATHETER REMOVED, NOTED TO BE CLOGGED AT TIP WITH CLOTS. ORDOÑEZ CATHETER REPLACED, NOTED WITH DARK GREEN/BROWN COLORED URINE WITH MANY CLOTS. CATHETER CLAMPED INTERMITTENTLY DUE TO HIGH OUTPUT. AFTER INTERMITTENT CLAMPING, NOTED WITH APPROXIMATELY 1000ML OF URINE OUTPUT, DARK GREEN/BROWN WITH CLOTS. WILL MONITOR CLOSELY
[2020-03-09] VITALS (41 sets, daily range): BP systolic 95–134; BP diastolic 57–79
[2020-03-09] MEDS: PROPOFOL 100 ML IV PRN ×9 (02:19→22:29)
[2020-03-09 04:36] LABS: BASOPHILS % (AUTO) 0.2 % (0.0-2.0); EOSINOPHILS % (AUTO) 1.7 % (0.0-6.0); HEMATOCRIT 34 % (39-51); HEMOGLOBIN 10.6 g/dL (13.5-17.5); LYMPHOCYTES # (AUTO) 0.5 /CMM (0.8-4.8); LYMPHOCYTES % (AUTO) 3.5 % (20.0-44.0); MEAN CORPUSCULAR HGB CONC 32 g/dl (31.0-36.0); MEAN CORPUSCULAR VOLUME 90 fL (80-96); MONOCYTES # (AUTO) 0.4 /CMM (0.1-1.30); MONOCYTES % (AUTO) 2.6 % (2.0-12.0); NEUTROPHILS # (AUTO) 14.1 /CMM (1.8-8.9); PLATELET COUNT (AUTO) 272 /CMM (150-450); RED BLOOD CELL COUNT(AUTO) 3.71 MIL/uL (4.5-6.0); WHITE BLOOD COUNT (AUTO) 15.3 K/uL (4.3-11.0)
[2020-03-09 04:49] LABS: CALCIUM, SERUM 8.9 mg/dL (8.5-10.1); CREATININE 1.4 mg/dL (0.6-1.3); MAGNESIUM 2.6 mg/dL (1.8-2.4); PHOSPHORUS 4.3 mg/dL (2.5-4.9)
[2020-03-09] MEDS: CEFEPIME 2 GM in IV D5W 100 ML IV SCH ×2 (08:31→20:49)
[2020-03-09] MEDS: PROSOURCE / PROSTAT (PYXIS) 30 ML UDC GT SCH ×2 (08:31→16:31)
[2020-03-09] MEDS: APIXABAN 5 MG TABLET PO SCH ×2 (08:32→16:31)
[2020-03-09 08:49] LABS: ABG OXYGEN SATURATION 86.4 % (92.0-98.5); ABG PCO2 54.1 mmHg (35.0-45.0); ABG PH 7.257 (7.350-7.450); ABG PO2 56.6 mmHg (75.0-100.0); COHb 0.5 % (0.5-1.5); MetHb 0.1 % (0.0-1.5); O2Hb 85.9 % (94.0-97.0); PEEP,BG 12 cm H2O; SITE, ABG Right Radial; VT, ABG 430 mL
[2020-03-09] MEDS: LORAZEPAM INJ 2 MG/ML VIAL IV PRN (09:18)
[2020-03-09] MEDS ORDERED: IV D5/0.45 NACL 1,000 ML IV PRN (10:30)
[2020-03-09] MEDS: GLUCERNA 1.2 1,000 ML BOTTLE NG PRN (16:31)
--- NOTE | 2020-03-09 18:53 | NUR ---
RN CLOSING NOTES PT REMAINS INTUBATED, SEDATED. NO RESPIRATORY DISTRESS NOTED. ETT PLACEMENT AND VENT SETTINGS ADJUSTED. TOLERATING TUBE FEEDING WELL. ORDOÑEZ IN PLACE. KEPT COMFORTABLE. WILL ENDORSE FOR CONTINUITY OF CARE
[2020-03-10] VITALS (35 sets, daily range): BP systolic 92–137; BP diastolic 54–79
[2020-03-10] MEDS: ACETAMINOPHEN 325 MG TABLET PO PRN (00:22)
[2020-03-10] MEDS: PROPOFOL 100 ML IV PRN ×12 (00:24→23:41)
[2020-03-10] MEDS: LORAZEPAM INJ 2 MG/ML VIAL IV PRN (03:17)
--- NOTE | 2020-03-10 03:50 | NUR ---
POWER SYSTEM ENGINEER NOTES PATIENT CURRENTLY ON DIPRIVAN DRIP @ 100MCG/KG/MIN, BUT STILL AGITATED MANIFESTED BY TACHYPNEA, RESPIRATORY RATE INCREASING TO 35-37 BREATHS PER MINUTE DESPITE BEING ON AC 28. ATIVAN 1MG IV ADMINISTERED ORDERED. WILL MONITOR CLOSELY
[2020-03-10 04:34] LABS: BASOPHILS # (AUTO) 0.1 /CMM (0.0-0.2); BASOPHILS % (AUTO) 0.5 % (0.0-2.0); EOSINOPHILS % (AUTO) 2.3 % (0.0-6.0); HEMATOCRIT 34 % (39-51); HEMOGLOBIN 10.9 g/dL (13.5-17.5); LYMPHOCYTES # (AUTO) 0.3 /CMM (0.8-4.8); LYMPHOCYTES % (AUTO) 2.3 % (20.0-44.0); MEAN CORPUSCULAR HGB CONC 32 g/dl (31.0-36.0); MEAN CORPUSCULAR VOLUME 91 fL (80-96); MONOCYTES # (AUTO) 0.4 /CMM (0.1-1.30); MONOCYTES % (AUTO) 3.2 % (2.0-12.0); NEUTROPHILS # (AUTO) 12.2 /CMM (1.8-8.9); NEUTROPHILS % (AUTO) 91.7 % (43.0-81.0); PLATELET COUNT (AUTO) 246 /CMM (150-450); WHITE BLOOD COUNT (AUTO) 13.3 K/uL (4.3-11.0)
[2020-03-10 04:59] LABS: CALCIUM, SERUM 8.8 mg/dL (8.5-10.1); CREATININE 1.5 mg/dL (0.6-1.3); MAGNESIUM 2.4 mg/dL (1.8-2.4); PHOSPHORUS 5.2 mg/dL (2.5-4.9); POTASSIUM 5.2 mmol/L (3.5-5.1)
[2020-03-10] MEDS: APIXABAN 5 MG TABLET PO SCH ×2 (09:00→17:29)
[2020-03-10 09:13] LABS: ABG BASE EXCESS -5.4 mmol/L; ABG OXYGEN SATURATION 91.8 % (92.0-98.5); ABG PCO2 54.9 mmHg (35.0-45.0); AaDO2 444.8 mmHg; COHb 0.7 % (0.5-1.5); O2Hb 91.2 % (94.0-97.0); PEEP,BG 14 cm H2O; SITE, ABG Right Radial; VENT MODE, BG AC 80%; VT, ABG 430 mL
[2020-03-10] MEDS: CEFEPIME 2 GM in IV D5W 100 ML IV SCH ×2 (10:09→21:42)
[2020-03-10] MEDS: PROSOURCE / PROSTAT (PYXIS) 30 ML UDC GT SCH ×2 (11:00→17:28)
--- NOTE | 2020-03-10 19:00 | NUR ---
RECEIVED PATIENT ORALLY INTUBATED ON AC MODE ,PEEP=14., PIP=39.SEDATED WITH PROPOFOL DRIP @ 100 MCG/KG/MIN.TUBE FEEDING VIA NGT ,WITH MODERATE RESIDUALS .ASPIRATION PRECAUTION OBSERVED,WILL CLOSELY MONITOR FEEDING RESIDUALS.
[2020-03-11] VITALS (24 sets, daily range): BP systolic 101–122; BP diastolic 59–70
--- NOTE | 2020-03-11 | NUR ---
REMAINS FULLY SEDATED @ 100 MCG/KG/MIN OF PROPOFOL.STABLE V/S ,RESPIRATORY STATUS STABLE.
[2020-03-11] MEDS: PROPOFOL 100 ML IV PRN ×11 (01:38→22:35)
[2020-03-11 04:37] LABS: BASOPHILS # (AUTO) 0.1 /CMM (0.0-0.2); BASOPHILS % (AUTO) 0.6 % (0.0-2.0); EOSINOPHILS % (AUTO) 3.2 % (0.0-6.0); HEMATOCRIT 35 % (39-51); LYMPHOCYTES # (AUTO) 0.4 /CMM (0.8-4.8); LYMPHOCYTES % (AUTO) 2.8 % (20.0-44.0); MEAN CORPUSCULAR HGB CONC 32 g/dl (31.0-36.0); MEAN CORPUSCULAR VOLUME 90 fL (80-96); MONOCYTES # (AUTO) 0.3 /CMM (0.1-1.30); MONOCYTES % (AUTO) 2.3 % (2.0-12.0); NEUTROPHILS # (AUTO) 12.5 /CMM (1.8-8.9); NEUTROPHILS % (AUTO) 91.1 % (43.0-81.0); PLATELET COUNT (AUTO) 231 /CMM (150-450); RED BLOOD CELL COUNT(AUTO) 3.84 MIL/uL (4.5-6.0); WHITE BLOOD COUNT (AUTO) 13.7 K/uL (4.3-11.0)
[2020-03-11 05:00] LABS: CREATININE 2.1 mg/dL (0.6-1.3); MAGNESIUM 2.4 mg/dL (1.8-2.4); PHOSPHORUS 5.2 mg/dL (2.5-4.9); POTASSIUM 5.1 mmol/L (3.5-5.1)
--- NOTE | 2020-03-11 05:45 | NUR ---
RT pt received on mechanical vent with current vent settings. orally intubated, ett 7.5, 25@lip. alarms on and audible. vent plugged in to red outlet. no sob, no resp distress. ambu bag at [facility].
[2020-03-11] MEDS: GLUCERNA 1.2 1,000 ML BOTTLE NG PRN (05:55)
--- NOTE | 2020-03-11 07:00 | NUR ---
REMAINS STABLE ON THE VENTILATOR WITH PEEP=14,FIO2 80 %, FULLY SEDATED WITH PROPOFOL 100 MCG/KG/MIN. CONTINUE TO MONITOR ,CONTINUE SEDATION,WEAN OFF FIO2 TOLERATED
--- NOTE | 2020-03-11 08:44 | NUR ---
WOUND CARE CONSULT: REVIEWED CHART, NURSING DOCUMENTATION AND SPOKE WITH NURSING STAFF REGARDING SKIN PROTECTION. PT IS ON FIRST STEP CIRRUS LOW AIRLOSS MATTRESS. ALL SKIN PROTECTION MEASURES IN PLACE. MD IN AGREEMENT WITH PLAN OF CARE.
[2020-03-11] MEDS: PROSOURCE / PROSTAT (PYXIS) 30 ML UDC GT SCH ×2 (08:50→16:49)
[2020-03-11] MEDS: APIXABAN 5 MG TABLET PO SCH ×2 (08:51→16:49)
[2020-03-11] MEDS: CEFEPIME 2 GM in IV D5W 100 ML IV SCH (08:52)
[2020-03-11 09:18] LABS: ABG BASE EXCESS -5.3 mmol/L; ABG OXYGEN SATURATION 89.5 % (92.0-98.5); ABG PCO2 54.6 mmHg (35.0-45.0); ABG PH 7.234 (7.350-7.450); ABG PO2 62.8 mmHg (75.0-100.0); AaDO2 450.3 mmHg; COHb 0.5 % (0.5-1.5); MetHb 0.1 % (0.0-1.5); SITE, ABG Right Radial; VENT MODE, BG AC 28 430 +14 80%
[2020-03-11] MEDS: LORAZEPAM INJ 2 MG/ML VIAL IV PRN (10:37)
[2020-03-11] MEDS: IV NS 0.9% 1,000 ML IV PRN (13:08)
--- NOTE | 2020-03-11 18:38 | NUR ---
RN CLOSING NOTES PT REMAINS INTUBATED, SEDATED. NO RESPIRATORY DISTRESS NOTED. TOLERATING TUBE FEEDING WELL. ORDOÑEZ IN PLACE. KEPT COMFORTABLE. WILL ENDORSE FOR CONTINUITY OF CARE
[2020-03-12] VITALS (24 sets, daily range): BP systolic 101–128; BP diastolic 60–79
[2020-03-12] MEDS: PROPOFOL 100 ML IV PRN ×9 (00:51→21:03)
[2020-03-12] MEDS: IV NS 0.9% 1,000 ML IV PRN ×2 (02:23→14:59)
[2020-03-12 05:29] LABS: BASOPHILS # (AUTO) 0.1 /CMM (0.0-0.2); BASOPHILS % (AUTO) 0.5 % (0.0-2.0); EOSINOPHILS % (AUTO) 3.1 % (0.0-6.0); HEMATOCRIT 33 % (39-51); HEMOGLOBIN 10.3 g/dL (13.5-17.5); LYMPHOCYTES # (AUTO) 0.4 /CMM (0.8-4.8); LYMPHOCYTES % (AUTO) 3.1 % (20.0-44.0); MEAN CORPUSCULAR HGB CONC 31 g/dl (31.0-36.0); MEAN CORPUSCULAR VOLUME 90 fL (80-96); MONOCYTES # (AUTO) 0.5 /CMM (0.1-1.30); MONOCYTES % (AUTO) 3.5 % (2.0-12.0); NEUTROPHILS # (AUTO) 12.7 /CMM (1.8-8.9); NEUTROPHILS % (AUTO) 89.8 % (43.0-81.0); PLATELET COUNT (AUTO) 238 /CMM (150-450); RED BLOOD CELL COUNT(AUTO) 3.64 MIL/uL (4.5-6.0); WHITE BLOOD COUNT (AUTO) 14.1 K/uL (4.3-11.0)
[2020-03-12 05:41] LABS: CREATININE 2.9 mg/dL (0.6-1.3); MAGNESIUM 2.7 mg/dL (1.8-2.4); PHOSPHORUS 6.2 mg/dL (2.5-4.9); POTASSIUM 5.4 mmol/L (3.5-5.1)
--- NOTE | 2020-03-12 07:45 | NUR ---
MACHINE COREMAKER OPENING NOTES Patient currently in bed and mechanical marisol setting with 02 of 98%. Patient is sedated and on propofol running at 100 mcg/kg/hour. No sob or s/s of respiratory distress noted. OGT running 25 cc/hour,with 100 cc residual noted and shahrzad well. Head of bed kept elevated to prevent aspiration. Howell cath intact and hanging to gravity with clear yellow urine noted. IV line to right upper arm running at 75cc/hour N/S 0.9 %. Will continue to monitor.
[2020-03-12] MEDS: PROSOURCE / PROSTAT (PYXIS) 30 ML UDC GT SCH ×2 (08:16→18:07)
[2020-03-12] MEDS: APIXABAN 5 MG TABLET PO SCH ×2 (08:18→18:09)
[2020-03-12 08:54] LABS: ABG BASE EXCESS -9.9 mmol/L; ABG OXYGEN SATURATION 91.1 % (92.0-98.5); ABG PCO2 57.3 mmHg (35.0-45.0); ABG PH 7.143 (7.350-7.450); ABG PO2 68.9 mmHg (75.0-100.0); AaDO2 441.3 mmHg; COHb 0.7 % (0.5-1.5); O2Hb 90.5 % (94.0-97.0); SITE, ABG Right Radial
[2020-03-12 11:30] LABS: CALCIUM, SERUM 8.8 mg/dL (8.5-10.1); CREATININE 3.1 mg/dL (0.6-1.3); POTASSIUM 5.6 mmol/L (3.5-5.1)
[2020-03-12] MEDS ORDERED: FENTANYL CITRATE IV 1,250 MCG in IV NS 0.9% 225 ML IV PRN (13:00)
--- NOTE | 2020-03-12 14:20 | NUR ---
Received order from MD Card to titrate Diprivan drip and start patient on versed and fentanyl due to high triglycerides. Pharmacy made aware. Orders noted, and waiting for pharmacy to deliver
[2020-03-12] MEDS: FENTANYL CITRAT IV 2,500 MCG in IV NS 0.9% 200 ML IV PRN (14:47)
[2020-03-12] MEDS: MIDAZOLAM HCL 100 MG in IV NS 0.9% 80 ML IV PRN (14:49)
--- NOTE | 2020-03-12 15:00 | NUR ---
Patient started on fentanyl and versed while propofol titrated 5mcg/kg/hour q 15 minutes.
--- NOTE | 2020-03-12 16:00 | NUR ---
Patient currently sedated and tolerating titration of Diprivan well.
--- NOTE | 2020-03-12 20:17 | NUR ---
HOME WORKER CLOSING NOTES Patient in bed and mechanical vent setting with 02 of 95%. Patient is sedated and being titrated off of propofol throughout shift and currently at 40 mcg/kg/hour.Patient is also on Fentanyl drip and Versed drip simultaneously while being titrated off of Diprivan. No sob or s/s of respiratory distress noted. OGT running 25 cc/hour,with no residual noted and shahrzad well. Head of bed kept elevated to prevent aspiration. Howell cath intact and hanging to gravity with clear yellow urine noted. IV line to right upper arm running at 75cc/hour N/S 0.9 %. Endorsed to next shift to continue titrating the Diprivan drip and monitor patient.
[2020-03-12] MEDS: ACETAMINOPHEN 325 MG TABLET PO PRN (21:54)
[2020-03-13] VITALS (27 sets, daily range): BP systolic 84–152; BP diastolic 50–97
[2020-03-13] MEDS: GLUCERNA 1.2 1,000 ML BOTTLE NG PRN (02:53)
[2020-03-13] MEDS: IV NS 0.9% 1,000 ML IV PRN (03:24)
--- NOTE | 2020-03-13 07:45 | NUR ---
PATTERN KEEPER OPENING NOTES Patient is sedated and on mechanical vent setting with 02 of 99%.9.Patient is also on Fentanyl drip and Versed drip and shahrzad well. No sob or s/s of respiratory distress noted. OGT running 25 cc/hour,with 100 cc residual noted and feeding shahrzad well. Head of bed kept elevated to prevent aspiration. Howell cath intact and hanging to gravity with clear yellow urine noted. IV line to right upper arm running at 75cc/hour N/S 0.9 %. Patient will be monitored. Bed is in lowest position.
[2020-03-13 08:24] LABS: ABG BASE EXCESS -12.1 mmol/L; ABG OXYGEN SATURATION 91.2 % (92.0-98.5); ABG PCO2 52.4 mmHg (35.0-45.0); ABG PH 7.129 (7.350-7.450); ABG PO2 67.7 mmHg (75.0-100.0); AaDO2 447.7 mmHg; COHb 1.1 % (0.5-1.5); MetHb 0.3 % (0.0-1.5); O2Hb 89.9 % (94.0-97.0); SITE, ABG Right Radial
[2020-03-13] MEDS: APIXABAN 5 MG TABLET PO SCH (08:38)
[2020-03-13] MEDS: PROSOURCE / PROSTAT (PYXIS) 30 ML UDC GT SCH ×2 (08:40→17:09)
[2020-03-13 10:14] LABS: CALCIUM, SERUM 9.1 mg/dL (8.5-10.1); CREATININE 4.3 mg/dL (0.6-1.3)
[2020-03-13 10:25] LABS: BASOPHILS # (AUTO) 0.2 /CMM (0.0-0.2); BASOPHILS % (AUTO) 1.5 % (0.0-2.0); EOSINOPHILS % (AUTO) 0.6 % (0.0-6.0); HEMATOCRIT 34 % (39-51); HEMOGLOBIN 10.4 g/dL (13.5-17.5); LYMPHOCYTES # (AUTO) 0.2 /CMM (0.8-4.8); LYMPHOCYTES % (AUTO) 1.3 % (20.0-44.0); MEAN CORPUSCULAR HGB CONC 31 g/dl (31.0-36.0); MEAN CORPUSCULAR VOLUME 91 fL (80-96); MONOCYTES # (AUTO) 0.4 /CMM (0.1-1.30); MONOCYTES % (AUTO) 2.4 % (2.0-12.0); NEUTROPHILS # (AUTO) 14.6 /CMM (1.8-8.9); NEUTROPHILS % (AUTO) 94.2 % (43.0-81.0); PLATELET COUNT (AUTO) 287 /CMM (150-450); RED BLOOD CELL COUNT(AUTO) 3.67 MIL/uL (4.5-6.0); WHITE BLOOD COUNT (AUTO) 15.5 K/uL (4.3-11.0)
[2020-03-13] MEDS: Sodium Bicarbonate 150 MEQ in IV D5W 1,000 ML IV PRN (12:23)
[2020-03-13 14:14] LABS: BAND % (MANUAL) 1 % (0.0-5.0); EOSINOPHILS % (MANUAL) 1 % (0-4); LYMPHOCYTES % (MANUAL) 2 % (16-48); MONOCYTES % (MANUAL) 3 % (0-11.0); MYELOCYTES % 3 % (0-0); NEUTROPHILS % (MANUAL) 90 (42-76)
[2020-03-13] MEDS: MIDAZOLAM HCL 100 MG in IV NS 0.9% 80 ML IV PRN (15:28)
[2020-03-13] MEDS: FENTANYL CITRAT IV 2,500 MCG in IV NS 0.9% 200 ML IV PRN (15:40)
[2020-03-13] MEDS: APIXABAN 2.5 MG TABLET PO SCH (17:31)
--- NOTE | 2020-03-13 19:00 | NUR ---
FLIGHT TEST ENGINEER CLOSING NOTES Patient in bed and mechanical vent setting with 02 of 99%. Patient is on Fentanyl drip and Versed drip.No sob or s/s of respiratory distress noted. OGT running 25 cc/hour, RON WELL. Noted with 500 cc of urine during shif Howell cath intact and hanging to gravity with clear yellow urine noted. IV line to right upper arm running at 75cc/hour D5 W with 3 ampule of sodium bicarbonate. Dr Whitaker called regarding patient's BUN and also informed Card Grinder Helper. Patient currently not in any distress. Bed is in lowest and locked position.
--- NOTE | 2020-03-13 20:00 | NUR ---
RN NOTE PT RECEIVED IN BED SEDATED, ON VENT SATING ABOVE 95%. THERE IS NO SIGN OF DISTRESS. SAFETY MEASURES IN PLACEN
--- NOTE | 2020-03-13 20:01 | NUR ---
RT NOTE pt received on mechanical vent with current vent settings. orally intubated, ETT 7.5, 25@lip. alarms on and audible. vent plugged in to red outlet. no sob, no resp distress. ambu bag at [facility]. will continue to monitor t/o shift.
[2020-03-14] VITALS (48 sets, daily range): BP systolic 84–127; BP diastolic 47–77
[2020-03-14] MEDS: PHENYLEPHRINE 100 MG in IV NS 0.9% 240 ML IV PRN (01:04)
[2020-03-14] MEDS: FENTANYL CITRAT IV 2,500 MCG in IV NS 0.9% 200 ML IV PRN ×3 (02:50→23:27)
[2020-03-14 05:00] LABS: BASOPHILS # (AUTO) 0.1 /CMM (0.0-0.2); BASOPHILS % (AUTO) 0.6 % (0.0-2.0); EOSINOPHILS % (AUTO) 3.8 % (0.0-6.0); HEMATOCRIT 29 % (39-51); HEMOGLOBIN 9.3 g/dL (13.5-17.5); LYMPHOCYTES # (AUTO) 0.6 /CMM (0.8-4.8); LYMPHOCYTES % (AUTO) 4.5 % (20.0-44.0); MEAN CORPUSCULAR HGB CONC 32 g/dl (31.0-36.0); MEAN CORPUSCULAR VOLUME 89 fL (80-96); MONOCYTES # (AUTO) 0.6 /CMM (0.1-1.30); MONOCYTES % (AUTO) 4.4 % (2.0-12.0); NEUTROPHILS # (AUTO) 11.3 /CMM (1.8-8.9); NEUTROPHILS % (AUTO) 86.7 % (43.0-81.0); PLATELET COUNT (AUTO) 291 /CMM (150-450); RED BLOOD CELL COUNT(AUTO) 3.25 MIL/uL (4.5-6.0); WHITE BLOOD COUNT (AUTO) 13.1 K/uL (4.3-11.0)
[2020-03-14] MEDS: Sodium Bicarbonate 150 MEQ in IV D5W 1,000 ML IV PRN ×2 (05:30→20:30)
[2020-03-14 05:55] LABS: BILIRUBIN,TOTAL 0.6 mg/dL (0.2-1.0); CALCIUM, SERUM 8.6 mg/dL (8.5-10.1); CREATININE 5.6 mg/dL (0.6-1.3); MAGNESIUM 3.1 mg/dL (1.8-2.4); POTASSIUM 5.5 mmol/L (3.5-5.1); TOTAL PROTEIN, SERUM 6.3 g/dL (6.4-8.2)
[2020-03-14 06:12] LABS: ALBUMIN 1.3 g/dL (3.4-5.0); PHOSPHORUS 8.3 mg/dL (2.5-4.9)
[2020-03-14] MEDS: MIDAZOLAM HCL 100 MG in IV NS 0.9% 80 ML IV PRN ×2 (06:57→22:51)
--- NOTE | 2020-03-14 07:30 | NUR ---
RN OPENING NOTES PATIENT PRESENT IN BED, SEDATED, ON MECH VENT, TOLERATING WELL, SPO2 IS 93%, RR 30, NO RESP DISTRESS NOTED, NSR ON TELEMONITOR, HR 83-85, NGT IN R NARES PRESENT, AUSCULTATED FOR PLACEMENT, RUNNING FEEDING @25CC/HR, MIN RESIDUAL NOTED (5CC) SKIN IS INTACT, ORDOÑEZ CATH IN PLACE, DRAINING YELLOW URINE BY GRAVITY, INTACT AND PATENT, R UA PICC LINE IN PLACE, PATENT, L HAND IV IN PLACE, FLUSHED , SAFETY MEASURES IN PLACE, BED IS LOCKED, IN LOWEST POSITION, WILL CONT TO MONITOR
--- NOTE | 2020-03-14 07:30 | NUR ---
RN NOTE PT REMAINED STABLE DURING MY SHIFT REPORT GIVEN TO INCOMING SHIFT FOR LISA.
[2020-03-14] MEDS: PROSOURCE / PROSTAT (PYXIS) 30 ML UDC GT SCH ×2 (08:20→16:25)
[2020-03-14] MEDS: APIXABAN 2.5 MG TABLET PO SCH ×2 (08:21→16:36)
[2020-03-14 09:01] LABS: ABG BASE EXCESS -8.7 mmol/L; ABG OXYGEN SATURATION 93.9 % (92.0-98.5); ABG PCO2 46.6 mmHg (35.0-45.0); ABG PO2 80.3 mmHg (75.0-100.0); AaDO2 441.2 mmHg; COHb 0.5 % (0.5-1.5); MetHb 0.4 % (0.0-1.5); O2Hb 93.1 % (94.0-97.0); SITE, ABG Right Radial
--- NOTE | 2020-03-14 09:19 | NUR ---
RN NOTE Dr Card spoke with the son Rico [phone] over the phone, report current status, explained plan of care, family wants Full Code for the patient
--- NOTE | 2020-03-14 14:30 | NUR ---
RN NOTE JUSTIN'S MOTHER JUSTIN MORTON CAE BY TO FRONT, PER PT'S SON AMBROSIO FIELDS TO PROVIDE UPDATE ON STATUS
--- NOTE | 2020-03-14 16:05 | NUR ---
RN NOTE URINE COLLECTED, PLACED IN SPECIMEN FRIDGE, LAB INFORMED
[2020-03-14] MEDS: GLUCERNA 1.2 1,000 ML BOTTLE NG PRN (16:25)
--- NOTE | 2020-03-14 17:04 | NUR ---
RT PATIENT REMAINS ORALLY INTUBATED ON [facility] VENT. VENT ALARMS AND SETTINGS CHECKED + AUDIBLE. ETT SECURE AND IN PROPER POSITION. VENT PLUGGED INTO RED OUTLET. AMBU BAG AT HOB. Addendum: 03/14/20 at 1705 by SANTANA SCHNEIDER RT Amended: Links added.
[2020-03-14 17:34] LABS: BILIRUBIN,URINE SMALL (NEGATIVE); COLOR,URINE YELLOW (YELLOW); LEUKOCYTE ESTERASE ,URINE MODERATE (NEGATIVE); NITRITE, URINE NEGATIVE (NEGATIVE); PH,URINE 5.5 (5.0-8.0); PROTEIN,URINE 100 mg/dl (NEGATIVE); UGLUCOSE NEGATIVE (NEGATIVE); UROBILINOGEN,URINE 0.2 EU/dL (0.2)
[2020-03-14 17:42] LABS: CREATININE, URINE 95.2 MG/DL (30.0-125.0); URINE TOTAL PROTEIN 237.5 mg/dL (0-11.9)
[2020-03-14 18:34] LABS: BACTERIA,URINE 4+ /HPF (None Seen); RBC,URINE 21-50 /HPF (0-2); SQUAMOUS EPITHELIAL CELL,UR 0-2 /HPF (None Seen); WBC,URINE 21-50 /HPF (0-3); YEAST,URINE Many /HPF (None Seen)
[2020-03-14 18:36] LABS: EOSINOPHIL,URINE None Seen
--- NOTE | 2020-03-14 19:36 | NUR ---
RN CLOSING NOTES PATIENT REMAINS IN BED, TOLERATING SETTINGS WELL, NO CHANGES DURING SHIFT, MEDIATIONS PROVIDED,CLEANED AND REPOSITIONED, SAFETY PRECAUTIONS IN PLACE, BED IS LOCKED, IN LOWEST POSITION, HOB ELEVATED, WILL ENDORSE TO PM SHIFT FOR LISA
--- NOTE | 2020-03-14 19:40 | NUR ---
RN OPENING NOTES, PATIENT IN BED, SEDATED, INTUBATED ON [facility] VENTILATOR , TOLERATING SETTINGS WELL, NO SOB/ACUTE DISTRESS NOTED, NSR ON TELEMONITOR, HR 90S AT THIS TIME, NGT IN R NARES IN PLACE, PLACEMENT VERIFIED, GLUCERNA INFUSING @25CC/HR, NO RESIDUAL NOTED, ORDOÑEZ CATH IN PLACE, DRAINING DARK YELLOW URINE BY GRAVITY, PATENCY INTACT, JAMIN PICC LINE IN PLACE, PATENT, L HAND IV IN PLACE, PATENT AND INTACT, SAFETY MEASURES IN PLACE, BED LOCKED AND LOWEST POSITION, WILL CONT TO MONITOR CLOSELY.
--- NOTE | 2020-03-14 22:30 | NUR ---
ROOF BOLTER HELPER NOTES, PATIENT NOTED WITH O2 IN HIGH 80S, RT NOTIFIED AND TITRATED FIO2 P TO 100%, O2 SAT LEVEL INCREASED TO 94% WILL CONTINUE TO MONITOR CLOSELY.
[2020-03-15] VITALS (39 sets, daily range): BP systolic 101–136; BP diastolic 62–77
--- NOTE | 2020-03-15 05:30 | NUR ---
RT NOTE Pt rec'd orally intubated via ETT sz 7.5 secured at 25cm secured at the lipline. Pt on AC mode on noted settings as charted. pt sx'd for small amt of yellow secretions. Alarms are set and audible. Ambu bag bedside. Vent plugged into red outlet. will continue to monitor closely. Addendum: 03/15/20 at 0532 by RUBI BELTRAN RT Amended: Links added.
--- NOTE | 2020-03-15 06:36 | NUR ---
BLAST FURNACE KEEPER HELPER CLOSING NOTES, PATIENT IN BED, SEDATED, INTUBATED ON [facility] VENTILATOR , FIO2 INCREASED TO 100% LAST NIGHT, PATIENT SUCTIONED NEEDED, REPOSITIONED, PULSE OXIMETER CHANGED X3 AND PATIENT AT THIS TIME WITH 02 SAT LEVEL 89-92%, NO SOB/ACUTE DISTRESS NOTED, NSR ON TELEMONITOR, HR 80- 90S DURING THE NIGHT, PATIENT CONTINUE W WIT SODIUM BICARBONATE DRIP, FENTANYL AND VERSED FOR SEDATION, WELL NE-SYNEPHRINE ORDERED, PATIENT MAINTAINING SBP, NGT IN R NARES IN PLACE, PLACEMENT VERIFIED, GLUCERNA INFUSING @25CC/HR, WITH 20ML RESIDUAL NOTED THIS MORNING, ORDOÑEZ CATH IN PLACE, WITH MODERATE OUTPUT, PATENCY INTACT, JAMIN PICC LINE IN PLACE, PATENT, L HAND IV IN PLACE, PATENT AND INTACT, SAFETY MEASURES IN PLACE, BED LOCKED AND LOWEST POSITION, WILL ENDORSE CONTINUITY OF CARE TO ONCOMING NURSE.
--- NOTE | 2020-03-15 07:39 | NUR ---
FLOWER POT PRESS OPERATOR NOTES, PATIENT IN BED WITH EYES SEMI OPEN AT TIMES, BUT NOT TRACKING OR FOLLOW COMMANDS, WITH ETT TO ON MECHANICAL VENTILATOR TOLERATING VENT SETTINGS WELL, NO SOB/ BUT SATURATION 88-89% IV LINES INTACT, OFF PRESSORS AND PROPOFOL, WITH BILATERAL SOFT WRIST RESTRAINS, NO ABNORMALITY NOTED, NO CIRCULATION COMPROMISED, ALL SAFETY MEASURES IN PLACE, BED LOCKED AND AT LOWEST POSITION, WITH SIDE RAILS UP X3, WITH GLUCERNA VIA [place] RT NARE IN PLACE ,KEEP HOB ELEVATED AT AL TIME , ON VERSED FENTANYL AJIT DRIP ORDERED, IVF ORDERED VIA RT UA PICC LINE, WILL MONITOR
[2020-03-15] MEDS: PROSOURCE / PROSTAT (PYXIS) 30 ML UDC GT SCH ×2 (08:39→16:50)
[2020-03-15] MEDS: APIXABAN 2.5 MG TABLET PO SCH ×2 (08:40→16:52)
[2020-03-15 08:51] LABS: BASOPHILS # (AUTO) 0.1 /CMM (0.0-0.2); BASOPHILS % (AUTO) 0.5 % (0.0-2.0); HEMATOCRIT 27 % (39-51); HEMOGLOBIN 8.4 g/dL (13.5-17.5); LYMPHOCYTES # (AUTO) 0.6 /CMM (0.8-4.8); LYMPHOCYTES % (AUTO) 4.4 % (20.0-44.0); MEAN CORPUSCULAR HGB CONC 32 g/dl (31.0-36.0); MEAN CORPUSCULAR VOLUME 89 fL (80-96); MONOCYTES # (AUTO) 0.5 /CMM (0.1-1.30); MONOCYTES % (AUTO) 3.7 % (2.0-12.0); NEUTROPHILS % (AUTO) 86.4 % (43.0-81.0); PLATELET COUNT (AUTO) 274 /CMM (150-450); WHITE BLOOD COUNT (AUTO) 13.8 K/uL (4.3-11.0)
[2020-03-15 08:52] LABS: ABG BASE EXCESS -4.2 mmol/L; ABG OXYGEN SATURATION 85.9 % (92.0-98.5); ABG PCO2 50.7 mmHg (35.0-45.0); ABG PH 7.269 (7.350-7.450); ABG PO2 57.2 mmHg (75.0-100.0); AaDO2 605.1 mmHg; COHb 0.9 % (0.5-1.5); MetHb 0.4 % (0.0-1.5); O2Hb 84.8 % (94.0-97.0); SITE, ABG Right Radial
[2020-03-15] MEDS: Sodium Bicarbonate 150 MEQ in IV D5W 1,000 ML IV PRN (08:59)
--- NOTE | 2020-03-15 09:00 | NUR ---
curriculum counselor note no sedation vocation per dr longo order for now ,patient not hemodynamically stable
--- NOTE | 2020-03-15 09:00 | NUR ---
agricultural engineering technicians note dr longo aware that saturation 88_ 89% abg done,per rt ok to keep same vent setting
[2020-03-15] MEDS: PHENYLEPHRINE 100 MG in IV NS 0.9% 240 ML IV PRN (09:06)
[2020-03-15 09:09] LABS: BILIRUBIN,TOTAL 0.9 mg/dL (0.2-1.0); CALCIUM, SERUM 8.7 mg/dL (8.5-10.1); CREATININE 6.7 mg/dL (0.6-1.3); MAGNESIUM 3.1 mg/dL (1.8-2.4); TOTAL PROTEIN, SERUM 6.1 g/dL (6.4-8.2)
[2020-03-15] MEDS ORDERED: HYDROCORTISONE SOD SUCCINATE 100 MG/2 ML VIAL IV SCH (09:30)
[2020-03-15 09:37] LABS: ALBUMIN 1.3 g/dL (3.4-5.0); PHOSPHORUS 8.2 mg/dL (2.5-4.9)
[2020-03-15] MEDS: HYDROCORTISONE SOD SUCCINATE 100 MG/2 ML VIAL IV SCH ×3 (09:51→22:01)
--- NOTE | 2020-03-15 10:29 | NUR ---
multicultural internship note saturation 85% at this time spoke with dr qing patricia to increas peep to 16, rt at bedside
[2020-03-15] MEDS: FENTANYL CITRAT IV 2,500 MCG in IV NS 0.9% 200 ML IV PRN ×2 (10:41→22:12)
--- NOTE | 2020-03-15 11:08 | NUR ---
agricultural research technologist note spoke with dr Rodriguez sole trimmer notified that bun 19 creatine 5.6 mag 3.1 phos 1.2 stated that will speak with family about hd cath placement will f\u Addendum: 03/15/20 at 1154 by NESSA HERNANDEZ RN CORRECTION BUN 119 ,PHOSPHOROUS 8.3 DR RODRIGUEZ NOTIFIED
--- NOTE | 2020-03-15 11:23 | NUR ---
TILE FINISHER NOTE PER DR LA OK INCREASE RATE NG FEEDING AT 35 ML PER HOUR
--- NOTE | 2020-03-15 11:43 | NUR ---
AUTO TECHNICIAN NOTE REPOSITION ON LT SIDE ,SATURATION 89% FOR NOW , WILL MONITOR
--- NOTE | 2020-03-15 11:56 | NUR ---
CONFERENCE INTERPRETER NOTE SPOKE WITH DR MARRERO NOTIFIED THAT BUN 119 CREATINE 5.6 PHOS 8.3 ON 100 FIO2 PEEP 16 AWARE THAT VERY SMALL URINE OUT PUT 50 ML FOR NOW , STATED TO MONITOR
[2020-03-15 13:37] LABS: EOSINOPHILS % (MANUAL) 3 % (0-4); LYMPHOCYTES % (MANUAL) 5 % (16-48); MONOCYTES % (MANUAL) 2 % (0-11.0); NEUTROPHILS % (MANUAL) 90 (42-76)
--- NOTE | 2020-03-15 14:04 | NUR ---
agricultural agent note solu cortef was done at 10 am per pharmacy ok to hold dose at 1300 need to be done q8 hour
[2020-03-15] MEDS: MIDAZOLAM HCL 100 MG in IV NS 0.9% 80 ML IV PRN (14:07)
--- NOTE | 2020-03-15 14:31 | NUR ---
TRANSIT SURVEY WORKER NOTE CEDED N G TUBE PLACEMENT BY AUSCULTATION OF AIR , NO RESIDUAL NOTED AT THIS TIME , KEEP HOB ELEVATED AT ALL TIME, SATURATION 93% FOR NOW , WILL CONT TO MONITOR Addendum: 03/15/20 at 1433 by NESSA HERNANDEZ RN CHECKED N G TUBE PLACEMENT
[2020-03-15] MEDS ORDERED: HEPARIN SODIUM, PORCINE 1,000 UNIT/ML VIAL IV ONE (15:30)
[2020-03-15] MEDS ORDERED: LIDOCAINE 1% INJ 50 ML MDV IJ ONE (15:30)
--- NOTE | 2020-03-15 15:45 | NUR ---
agricultural pilot note hd cath placement consent done spoke with sonJacoborolando
--- NOTE | 2020-03-15 18:25 | NUR ---
RAW STOCK MACHINE FEEDER NOTE ALL NEEDS ATTENDED WITH VERSED AND FENTANYL DRIP ORDERED ON VENT SETTING ORDERED
--- NOTE | 2020-03-15 19:11 | NUR ---
curriculum and assessment director note dr weaver at bedside hd cath paced on rt jaguar vein chest ray done
[2020-03-16] VITALS (57 sets, daily range): BP systolic 84–130; BP diastolic 53–89
[2020-03-16] MEDS: Sodium Bicarbonate 150 MEQ in IV D5W 1,000 ML IV PRN (00:26)
--- NOTE | 2020-03-16 03:26 | NUR ---
RN NOTES PATIENT IS ORALLY INTUBATED WITH ETT 7.5 AND 25 CM AT LIP ON AC MODE 30 TV 430 FIO2 100% AND PEEP 16 NO ACUTE RESPIRATORY DISTRESS, SATURATION BETWEEN 90- 95 %. AFEBRILE. SEDATED WITH VERSED AND FENTANYL. TITRATED ORDERED. NSR ON TELE MONITOR. WITH NGT ON RGHT NARES. INTACT, PATENCY CHECKED. NGTF GLUCERNA TOLERATED WELL MINIMAL RESIDUAL NOTED. IV SITE ON JAMIN PICC LINE INTACT AND PATENT RUNNIGN WITH VERSED, FENTANYL, AJIT AND SODIUM BICARB RUNS WELL. PATIENT ON CVP MONITOR LABELLED AND CALIBRATED. ORDOÑEZ CATH DRAINED VIA GRAVITY. TURNED AND REPOSITIONED PATIENT COMFORTABLE. KEPT CLEAN AND DRY. WILL CONTINUE TO MONITOR. FOR ISOLATION PRECAUTION DUE TO COVID PNA.
[2020-03-16 04:26] LABS: BASOPHILS % (AUTO) 0.3 % (0.0-2.0); EOSINOPHILS % (AUTO) 0.1 % (0.0-6.0); HEMATOCRIT 23 % (39-51); HEMOGLOBIN 7.6 g/dL (13.5-17.5); LYMPHOCYTES # (AUTO) 0.2 /CMM (0.8-4.8); LYMPHOCYTES % (AUTO) 2.2 % (20.0-44.0); MEAN CORPUSCULAR HGB CONC 33 g/dl (31.0-36.0); MEAN CORPUSCULAR VOLUME 88 fL (80-96); MONOCYTES # (AUTO) 0.2 /CMM (0.1-1.30); MONOCYTES % (AUTO) 1.6 % (2.0-12.0); NEUTROPHILS # (AUTO) 10.7 /CMM (1.8-8.9); NEUTROPHILS % (AUTO) 95.8 % (43.0-81.0); PLATELET COUNT (AUTO) 223 /CMM (150-450); RED BLOOD CELL COUNT(AUTO) 2.65 MIL/uL (4.5-6.0); WHITE BLOOD COUNT (AUTO) 11.1 K/uL (4.3-11.0)
[2020-03-16 04:46] LABS: BILIRUBIN,TOTAL 0.8 mg/dL (0.2-1.0); CALCIUM, SERUM 8.3 mg/dL (8.5-10.1); MAGNESIUM 3.3 mg/dL (1.8-2.4); POTASSIUM 5.7 mmol/L (3.5-5.1); TOTAL PROTEIN, SERUM 6.1 g/dL (6.4-8.2)
[2020-03-16 05:12] LABS: ALBUMIN 1.2 g/dL (3.4-5.0); CREATININE 7.5 mg/dL (0.6-1.3); PHOSPHORUS 9.4 mg/dL (2.5-4.9)
[2020-03-16] MEDS: HYDROCORTISONE SOD SUCCINATE 100 MG/2 ML VIAL IV SCH ×3 (05:46→21:22)
[2020-03-16] MEDS: MIDAZOLAM HCL 100 MG in IV NS 0.9% 80 ML IV PRN ×2 (05:51→18:27)
--- NOTE | 2020-03-16 06:29 | NUR ---
RN NOTES REMAINED ON THE SAME VENT SETTING. NO ACUTE RESPIRATORY DISTRESS. CONTINUE ON VERSED, FENTANYL AND BICARBONATE DRIP WITH MARGINAL OXYGENATION BETWEEN 86-93%. DESPITE OF AC 30 TV 430 FIO2 100% PEEP 16. AFEBRILE. BP WNL. AJIT OFF AT 2200 AND SBP GOAL ACHIEVE. KEPT PT CLEAN AND DRY. CONTINUE TO TURNED AND REPOSITIONED Q2H AND PRN .
--- NOTE | 2020-03-16 07:32 | NUR ---
RECEIVED PATIENT IN BED. NO ACUTE DISTRESS NOTED. PATIENT SEDATED ON FENTANYL, PROPOFOL. PATIENT ON MECHANICAL VENTILATOR, SATURATING BETWEEN 88-92%, RT NOTED. PATIENT ON CONSERVATION PLANNER, NSR NOTED. PATIENT R NGT IN PLACE, INTACT, PATENT. PATIENT FC IN PLACE, INTACT, DRAINING TO GRAVITY. PATIENT RESTRAINTS IN PLACE, SAFETY MEASURES MAINTAINED. PATIENT JAMIN PICC IN PLACE, INTACT, PATENT. PATIENT SAFETY MEASURES MAINTAINED. WILL CONTINUE TO MONITOR.
[2020-03-16] MEDS: APIXABAN 2.5 MG TABLET PO SCH ×2 (08:28→17:11)
[2020-03-16] MEDS: PROSOURCE / PROSTAT (PYXIS) 30 ML UDC GT SCH ×2 (08:30→17:11)
[2020-03-16] MEDS: FENTANYL CITRAT IV 2,500 MCG in IV NS 0.9% 200 ML IV PRN ×2 (09:20→20:58)
[2020-03-16] MEDS: Sodium Bicarbonate 150 MEQ in IV D5W 1,000 ML IV SCH (15:36)
--- NOTE | 2020-03-16 18:30 | NUR ---
PATIENT IN BED. NO ACUTE DISTRESS NOTED. PATIENT SEDATED ON FENTANYL, VERSED. PATIENT ON MECHANICAL VENTILATOR, SATURATING BETWEEN 88-92%, DR. LA AND RT AWARE. PATIENT ON AUTO RADIATOR SPECIALIST, NSR NOTED. PATIENT R NGT IN PLACE, INTACT, PATENT. PATIENT FC IN PLACE, INTACT, DRAINING TO GRAVITY. PATIENT RESTRAINTS IN PLACE, SAFETY MEASURES MAINTAINED. PATIENT JAMIN PICC IN PLACE, INTACT, PATENT. PATIENT SAFETY MEASURES MAINTAINED. WILL ENDORSE PLAN OF CARE TO ONCOMING SHIFT
--- NOTE | 2020-03-16 19:30 | NUR ---
RN NOTES PATIENT STARTED DIALYSIS AT THIS TIME. SATURATION BETWEEN 87-91% NO RESPIRATORY DISTRESS PRESENT VENT SETTING AC 30 TV 430 FIO2 100% PEEP 16CONTINUE. PATIENT WITH ONGOING BICARB. AJIT AND FENTANYL TITRATED ORDERED. NSR ON TELE MONITOR. . CVP CONTINUE LABELLED AND CALIBRATED. KEPT PT CLEAN AND DRY WILL CONTINUE TO MONITOR.
[2020-03-16] MEDS ORDERED: ALBUMIN 25% 50 GM in PREMIX 1 EA IV PRN (20:00)
[2020-03-16] MEDS ORDERED: ALBUMIN 25% 25 GM in PREMIX 1 EA IV PRN (20:00)
--- NOTE | 2020-03-16 20:13 | NUR ---
RT NOTE Pt rec'd orally intubated via ETT sz 7.5 secured at 25cm secured at the lipline. Pt on AC mode on noted settings as charted. pt sx'd for small amt of yellow secretions. spo2 88-92% Alarms are set and audible. Ambu bag bedside. Vent plugged into red outlet. will continue to monitor closely.
--- NOTE | 2020-03-16 21:00 | NUR ---
RN NOTES DIALYSIS DONE WITH 1.4 LITERS OUTPUT. TOLERATED WELL, HD CATH INTACT AND CHANGED DRESSING BY HD NURSE. PATIENT SATURATION REMAINED BETWEEN 84-%87. NO ACUTE RESPIRATORY DISTRESS. WILL CONTINUE TO MONITOR.
[2020-03-16] MEDS: FLUCONAZOLE (100 MG) 100 MG TABLET PO SCH (21:22)
[2020-03-17] VITALS (68 sets, daily range): BP systolic 62–132; BP diastolic 16–87
--- NOTE | 2020-03-17 00:10 | NUR ---
RN NOTES PATIENT SATURATION WENT DOWN TO 70'S AND SUSTAINING BETWEEN 70 - 75%, NADIA BEHAVIORAL ASSISTANT MADE AWARE. BP ON 120'S AND HR ON 80'S NO ACUTE RESPIRATORY DISTRESS. SETTING THE SAME AC 30 TV 430 FIO2 100% PEEP 16. CONTINUE ON IV BICARB, AJIT AND VERSED TITRATED ORDERED. TURNED AND REPOSITIONED. WILL CONTINUE TO MONITOR.
[2020-03-17] MEDS: HYDROCORTISONE SOD SUCCINATE 100 MG/2 ML VIAL IV SCH ×3 (04:24→21:25)
--- NOTE | 2020-03-17 07:15 | NUR ---
RN NOTE PATIENT HAD A LOW PERFUSION SATURATION BETWEEN 70'S-80'S NO ACUTE RESPIRATORY DISTRESS. AFEBRILE. CONTINUE ON ISOLATION DUE TO COVID PNA. ISOLATION PRECAUTION ALWAYS MET. NSR ON TELE MONITOR. SEDATED WITH VERSED. CONTINUE ON FENTANYL AND AJIT TITRATED PROTOCOL ORDERED. CVP KEPT LABELLED AND CALIBRATED. DIALYSIS TOLERATED WELL . BEDB ATH DONE. KEPT PT CLEAN AND DRY. WILL CONTINUE POC.
--- NOTE | 2020-03-17 07:51 | NUR ---
horticulture instructor note patient in bed, with ett tube to vent setting as ordered, with n g tube feeding as ordered, keep hob elevated at all time, with Howell cath to gravity with yellow color urine,saturation 76% at this time rt notified patient has poor perfusion, bed in lowest and locked position , will monitor
[2020-03-17] MEDS: FENTANYL CITRAT IV 2,500 MCG in IV NS 0.9% 200 ML IV PRN ×2 (08:16→18:54)
[2020-03-17] MEDS: APIXABAN 2.5 MG TABLET PO SCH ×2 (08:42→16:57)
[2020-03-17] MEDS: PROSOURCE / PROSTAT (PYXIS) 30 ML UDC GT SCH ×2 (08:42→16:57)
[2020-03-17] MEDS: FLUCONAZOLE (100 MG) 100 MG TABLET PO SCH (08:42)
--- NOTE | 2020-03-17 08:59 | NUR ---
SATELLITE DISH TECHNICIAN NOTE PLACED ON LT SIDED POSITION DR LA AT BEDSIDE NOTIFIED THAT SATURATION NOW 82% , ALSO PER DR LA OK TO HOLD ELIQUIS HG 7.6
--- NOTE | 2020-03-17 10:00 | NUR ---
OPERATIONS ADMINISTRATOR NOTE PER DR LA OK TO INCREASED FEEDING AT 35 ML PER HOUR, WILL MONITOR
[2020-03-17 10:06] LABS: ABG BASE EXCESS 2.3 mmol/L; ABG PCO2 51.8 mmHg (35.0-45.0); ABG PH 7.355 (7.350-7.450); ABG PO2 55.4 mmHg (75.0-100.0); AaDO2 605.8 mmHg; COHb 2.5 % (0.5-1.5); MetHb 0.3 % (0.0-1.5); O2Hb 79.7 % (94.0-97.0); PEEP,BG 16 cm H2O; SITE, ABG Right Radial; VT, ABG 480 mL
[2020-03-17] MEDS: Sodium Bicarbonate 150 MEQ in IV D5W 1,000 ML IV SCH (10:18)
[2020-03-17] MEDS: MIDAZOLAM HCL 100 MG in IV NS 0.9% 80 ML IV PRN (10:23)
--- NOTE | 2020-03-17 11:47 | NUR ---
CUSTOMER SUPPORT ASSOCIATE NOTE CONT STAY ON SIDE SATURATION 85-86% AT THIS TIME , WILL MONITOR
--- NOTE | 2020-03-17 13:37 | NUR ---
agriculture specialist note reposition on rt side at this time, saturation still 79-80%- dr holm welder boilermaker at [facility] aware that hd done yesterday very small urine out put today
--- NOTE | 2020-03-17 14:10 | NUR ---
curriculum designer note spoke with dr longo notified that peep 16 on vent but satiation 78-77-80% ok to change peep 18,rt at bedside and will change as ordered, will monitor
--- NOTE | 2020-03-17 14:10 | NUR ---
increase PEEP from 16 to +[address] longo Addendum: 03/17/20 at 1411 by KEIHT DUEÑAS RT Amended: Links added.
--- NOTE | 2020-03-17 14:25 | NUR ---
WEB MARKETING SPECIALIST NOTE SATURATION NOW 83% AFTER CHANGED PEEP 18 BY RT , WILL MONITOR
[2020-03-17] MEDS ORDERED: ALBUMIN 25% 50 GM in PREMIX 1 EA IV PRN (15:30)
--- NOTE | 2020-03-17 16:59 | NUR ---
agricultural produce washer note per dr Sherman and dr Guy and dr Card ok to hold eliquis today hg 7.5 will f\u tomorrow
--- NOTE | 2020-03-17 17:21 | NUR ---
curriculum designer note cont keep patient on side, saturation 91% at this time ,will cont to monitor
--- NOTE | 2020-03-17 17:53 | NUR ---
agricultural equipment sales manager note hd started ,per hd nurse increase neosynephrine drip to .7 mcg and albumin given by hd nurse
--- NOTE | 2020-03-17 18:26 | NUR ---
TEST DECK SUPERVISOR NOTE PER HD NURSE ,INCREASED AJIT DRIP AT 1 MCG\KG \MIN BP 100/45, NOT IN DISTRESS ON HD AT THIS TIME
[2020-03-17] MEDS: PHENYLEPHRINE 100 MG in IV NS 0.9% 240 ML IV PRN (18:46)
--- NOTE | 2020-03-17 19:33 | NUR ---
RN NOTES RECEIVED PATIENT ON DIALYSIS. PATIENT IS ORALLY INTUBATED WITH ETT 7.5 AND 25 CM AT LIP WITH VETN SETTING AC 30 TV 480 FIO2 100% PEEP 18. ST HR 103 ON TELE MONITOR NO ACUTE RESPIRATORY DISTRESS SATURATION BETWEEN 87-91%. NGT INTACT AND PATENT. IV SITE ON JAMIN PICC LINE INTACT AND PATENT RUNNING WEITH VERSED, FENTANYL, AJIT AND BICARB TITRATES PROTOCOL ORDERED. RIJ HD CATH INTACT. CVP BETWEEN 14-17. ISOLATION PRECAUTION STRICTLY IMPLEMENTED DUE TO COVID PNA. KEPT PT CLEAN AND DRY. TURNED AND REPOSITIONED MUCH POSSIBLE PT. TOLERANCE.
[2020-03-17] MEDS ORDERED: VANCOMYCIN 1 GM in IV D5W 250ml IV ONE (22:00)
[2020-03-17] MEDS ORDERED: VANCOMYCIN 1 GM VIAL ONE (22:04)
[2020-03-17] MEDS ORDERED: MEROPENEM 500 MG VIAL IV ONE (22:05)
[2020-03-17] MEDS: MEROPENEM 500 MG in IV NS 0.9% 50 ML IV SCH (22:10)
[2020-03-17] MEDS ORDERED: MICAFUNGIN SODIUM 100 MG VIAL IV ONE (22:33)
[2020-03-17] MEDS: MICAFUNGIN SODIUM 100 MG in IV NS 0.9% 100 ML IV SCH (22:47)
[2020-03-18] VITALS (95 sets, daily range): BP systolic 51–151; BP diastolic 22–96
[2020-03-18] MEDS: Sodium Bicarbonate 150 MEQ in IV D5W 1,000 ML IV SCH (01:16)
[2020-03-18] MEDS: MIDAZOLAM HCL 100 MG in IV NS 0.9% 80 ML IV PRN (03:41)
[2020-03-18 05:00] LABS: BASOPHILS % (AUTO) 0.2 % (0.0-2.0); EOSINOPHILS % (AUTO) 0.2 % (0.0-6.0); HEMATOCRIT 27 % (39-51); HEMOGLOBIN 8.5 g/dL (13.5-17.5); LYMPHOCYTES # (AUTO) 0.8 /CMM (0.8-4.8); LYMPHOCYTES % (AUTO) 3.9 % (20.0-44.0); MEAN CORPUSCULAR HGB CONC 32 g/dl (31.0-36.0); MEAN CORPUSCULAR VOLUME 90 fL (80-96); MONOCYTES # (AUTO) 0.7 /CMM (0.1-1.30); MONOCYTES % (AUTO) 3.4 % (2.0-12.0); NEUTROPHILS # (AUTO) 18.3 /CMM (1.8-8.9); NEUTROPHILS % (AUTO) 92.3 % (43.0-81.0); PLATELET COUNT (AUTO) 408 /CMM (150-450); RED BLOOD CELL COUNT(AUTO) 2.98 MIL/uL (4.5-6.0); WHITE BLOOD COUNT (AUTO) 19.9 K/uL (4.3-11.0)
[2020-03-18] MEDS: GLUCERNA 1.2 1,000 ML BOTTLE NG PRN (05:29)
--- NOTE | 2020-03-18 05:29 | NUR ---
RT NOTES PT REMAIN ORALLY INTUBATED WITH 7.5 ETT SECURED AT 25CM AT THE LIPLINE ON [facility] VENT ON CHARTED AC MODE SETTINGS. AIRWAY PATENT. DYE BOX OPERATOR DONE. PT SUCTIONED. ALARMS SET AND AUDIBLE. VENT PLUGGED INTO RED OUTLET. WILL CONT TO MONITOR CLOSELY. Addendum: 03/18/20 at 0537 by JEFFY SERVIN RT Amended: Links added.
[2020-03-18 05:42] LABS: ALBUMIN 2.8 g/dL (3.4-5.0); BILIRUBIN,TOTAL 1.4 mg/dL (0.2-1.0); CALCIUM, SERUM 8.3 mg/dL (8.5-10.1); CREATININE 5.6 mg/dL (0.6-1.3); MAGNESIUM 2.8 mg/dL (1.8-2.4); POTASSIUM 5.5 mmol/L (3.5-5.1); TOTAL PROTEIN, SERUM 7.3 g/dL (6.4-8.2)
[2020-03-18] MEDS: HYDROCORTISONE SOD SUCCINATE 100 MG/2 ML VIAL IV SCH ×3 (05:42→21:12)
[2020-03-18 05:44] LABS: PHOSPHORUS 9.5 mg/dL (2.5-4.9)
[2020-03-18] MEDS: FENTANYL CITRAT IV 2,500 MCG in IV NS 0.9% 200 ML IV PRN ×2 (06:26→17:23)
--- NOTE | 2020-03-18 07:30 | NUR ---
FOOD SAFETY OFFICER OPENING NOTE PT SEDATED ON VENT SETTINGS OF 7.5/25, AC 30, TV 480, FIO2 100%, PEEP 18, NO SIGNS O FRESP DISTRESS SPO2 90%. PER PATIENT TRANSPORTATION DRIVER NURSE, PT SPO2 RANGES FROM 85-92% WHICH IS NORMAL FOR PT. PT HAS RIJ HD CATHETER THAT IS PATENT. CVP ONCED ZEROED OUT IS AT 18. PT HAS RT NARE NGT RUNNING GLUCERNA 1.2 AT 30ML/HR, FLUSHED, AUSCULTATED FOR POSITIVE PLACEMENT, IS PATENT WITH RESIDUALS OF 25CC. PT BEDSIDE MONITOR NSR. PT HAS JAMIN PICC THAT IS PATENT. PT HAS FENTANYL RUNNING @ 220 MCG/HR, VERSED @ 6MG/HR, AJIT @ 0.6 MCG/KG/MIN AND BICARB @ 75ML/HR PER MD ORDERS. PT HAS ORDOÑEZ CATH DRAINING MINIMAL CLEAR JAMES COLORED URINE TO GRAVITY. ALL PT SAFETY PRECAUTIONS IN PLACE. WILL CONT TO MONITOR
--- NOTE | 2020-03-18 07:40 | NUR ---
RN NOTES NO SIGNIFICANT CHANGE OF CONDITION THROUGHOUT THE SHIFT. ETT AND VENT SETTING REMAINED THE SAME SATURATION BETWEEN 85-91%. AFEBRILE. VSS WITH PRESSORS , SEDATED WITH VERSED AND FENTANYL TITRATED PROTOCOL ORDERED. KEPT PT CLEAN AND DRY. ENDORSED CONTINUITY OF CARE TO AM SHIFT.
[2020-03-18] MEDS: MEROPENEM 500 MG in IV NS 0.9% 50 ML IV SCH ×2 (09:25→21:02)
[2020-03-18] MEDS: PROSOURCE / PROSTAT (PYXIS) 30 ML UDC GT SCH ×2 (09:25→16:59)
[2020-03-18] MEDS: APIXABAN 2.5 MG TABLET PO SCH ×2 (09:27→16:59)
[2020-03-18] MEDS ORDERED: VANCOMYCIN 500 MG in IV D5W 100 ML IV PRN (09:30)
[2020-03-18 10:05] LABS: ABG BASE EXCESS 3.1 mmol/L; ABG OXYGEN SATURATION 87.1 % (92.0-98.5); ABG PCO2 72.1 mmHg (35.0-45.0); ABG PH 7.256 (7.350-7.450); ABG PO2 65.4 mmHg (75.0-100.0); AaDO2 575.5 mmHg; COHb 2.2 % (0.5-1.5); O2Hb 85.2 % (94.0-97.0); PEEP,BG 18 cm H2O; SITE, ABG Right Radial; VENT MODE, BG AC 100%; VT, ABG 480 mL
--- NOTE | 2020-03-18 12:00 | NUR ---
RN NOTE SPOKE WITH PT'S SON BRAD ([phone]) REGARDING PT'S CONDITION AND CARE PLAN; ANSWERED ALL QUESTIONS TO HIS SATISFACTION
[2020-03-18 13:08] LABS: BAND % (MANUAL) 1 % (0.0-5.0); LYMPHOCYTES % (MANUAL) 1 % (16-48); MONOCYTES % (MANUAL) 3 % (0-11.0); MYELOCYTES % 3 % (0-0); NEUTROPHILS % (MANUAL) 92 (42-76)
[2020-03-18] MEDS: PHENYLEPHRINE 100 MG in IV NS 0.9% 240 ML IV PRN (13:56)
--- NOTE | 2020-03-18 16:00 | NUR ---
RN NOTE CURRENT CVP READING OF 28, UNABLE TO DOCUMENT IN CHARTING MAX IS 20
[2020-03-18] MEDS ORDERED: NOREPINEPHRINE 8 MG in IV NS 0.9% 242 ML IV PRN (17:45)
[2020-03-18] MEDS ORDERED: VASOPRESSIN INJ 40 UNIT in IV NS 0.9% 38 ML IV PRN (18:30)
--- NOTE | 2020-03-18 18:30 | NUR ---
RN NOTE CODE ALEX CALLED AT 1802, CPR INITIATED, ED DOCTOR ADAN HOFFMAN TOOK CONTROL, ACLS PROTOCOL WAS INITIATED, 1 SHOCK WAS DELIVERED, ROSC ACHIEVED AT 1814
--- NOTE | 2020-03-18 19:13 | NUR ---
RADIOTELEPHONE TECHNICAL OPERATOR CLOSING NOTE PT NOW IN STABLE CONDITION. PT VENT SETTINGS 7.5/25, AC 30, TV 480, FIO2 100%, PEEP 16, TOLERATING WELL, SPO2 77%, NO SIGNS OF RESP DISTRESS. DR MARRERO INFORMED AT 1850. SONBRAD INFORMED VIA PHONE CALL AT 1910 ABOUT STATUS OF PT. PT DID NOT RECEIVE DIALYSIS TODAY D/T UNSTABLE STATUS. VERSED AND FENTANYL STOPPED AT 1802 PRIOR TO PT CODING. PT CURRENTLY RUNNING AJIT @ 3MCG/KG/MIN AND NOREPI @ 0.1 MCG/KG/MIN. ALL PT SAFETY PRECAUTIONS IN PLACE. WILL ENDORSE LISA TO ONCOMING NURSE
[2020-03-18] MEDS ORDERED: NOREPINEPHRINE 32 MG in IV NS 0.9% 218 ML IV PRN (20:00)
--- NOTE | 2020-03-18 20:00 | NUR ---
DIET KITCHEN COOK: PT NOW DNR PER FAMILY REQUEST. STILL OFF FENTANYL AND VERSED. RECEIVED ON MAX. DOSE RATE OF NEOSYNEPHRINE AND ON LEVOPHED AT .1MCG/KG/MIN. VENT SETTINGS ORDERED. WILL CONTINUE TO MONITOR.
[2020-03-18] MEDS: MICAFUNGIN SODIUM 100 MG in IV NS 0.9% 100 ML IV SCH (22:10)
[2020-03-19] VITALS: BP 107/48
[2020-03-19] MEDS: PHENYLEPHRINE 100 MG in IV NS 0.9% 240 ML IV PRN (00:01)
[2020-03-19 00:15] VITALS: BP 98/75
[2020-03-19 00:30] VITALS: BP 107/64
--- NOTE | 2020-03-19 00:30 | NUR ---
STITCHER SET UP OPERATOR AUTOMATIC: BLOOD SUGAR CHECKED=67; PT HAS NOT BEEN ON GT FEEDING SINCE S/P CODE PER DAY SHIFT AND D/T HIGH RESIDUAL. GIVEN 60ML OF APPLE JUICE WT 2 PACKETS OF SUGAR VIA NGT. GT FEEDING RESUMED, HENDRIX COLORED RESIDUAL IMPROVED AT 60ML. LEVOPHED OFF SINCE 2329. WILL CONTINUE TO MONITOR.
[2020-03-19 00:45] VITALS: BP 98/58
[2020-03-19 01:00] VITALS: BP 64/32
[2020-03-19 01:03] VITALS: BP 64/32
[2020-03-19] MEDS ORDERED: EPINEPHRINE (1:10,000) SYRINGE 1 MG/10 ML DISP.SYRIN IVP ONE (01:23)
[2020-03-19] MEDS ORDERED: CALCIUM CHLORIDE 1,000 MG/10 ML DISP.SYRIN IV ONE (01:23)
--- NOTE | 2020-03-19 02:00 | NUR ---
FINISHER MERCHANT PRODUCTS: NOTED WT HYPOTENSION AND LEVOPHED RESTARTED. SHORTLY AFTER, UNABLE TO APPRECIATE BP, WENT SINUS BRADYCARDIA WITH HR IN THE 30s THEN TO ASYSTOLE ON PRODUCTION ENGINEER. CHARGE NURSE ED AT BEDSIDE TO EVALUATE PT. NO PALPABLE PULSES, NO APICAL PULSE NOTED UPON AUSCULTATION. BILAT. EYES FIXED AND DILATED. CHEST RISING ONLY D/T MECHANICAL VENTILATION. CHARGE NURSE PRONOUNCED PT AT 0124. 0127- MOR NITRATOR OPERATOR AND AGUILA Farrar OF ADMITTING MADE AWARE. 0130 - NADIA MCKEON, TEACHER INSTRUMENTAL MADE AWARE 0140 - SON BRAD MADE AWARE 0155 - [facility] CALLED AND SPOKE WT SKYLER AND SAID BODY IS NOT A GOOD CANDIDATE FOR ORGAN, EYE AND TISSUE DONATION. REFERENCE NUMBER [id number]. POST MORTEM RENDERED. BODY AND BELONGINGS RELEASED TO [facility] [place].
== END 2020-03-19 01:24 | disposition expired | DRG 720 ==
LOC: ER 13:24 → TRANSITION 17:38 → TELE1 02-29 19:56 → ICU 02-29 22:02
PROVIDERS: ADMIT Nurse Practitioner Acute Care
PROC: 5A09357 Assistance with Respiratory Ventilation, Less than 24 Consecutive Hours, Continuous Positive Airway Pressure (ICD-10-PCS; 2020-02-28)
PROC: XW033E5 Introduction of Remdesivir Anti-infective into Peripheral Vein, Percutaneous Approach, New Technology Group 5 (ICD-10-PCS; principal; 2020-02-29)
PROC: XW13325 Transfusion of Convalescent Plasma (Nonautologous) into Peripheral Vein, Percutaneous Approach, New Technology Group 5 (ICD-10-PCS; 2020-02-29)
PROC: 5A1955Z Respiratory Ventilation, Greater than 96 Consecutive Hours (ICD-10-PCS; 2020-03-02)
PROC: 0BH18EZ Insertion of Endotracheal Airway into Trachea, Via Natural or Artificial Opening Endoscopic (ICD-10-PCS; 2020-03-02)
PROC: 02HV33Z Insertion of Infusion Device into Superior Vena Cava, Percutaneous Approach (ICD-10-PCS; 2020-03-03)
PROC: B548ZZA Ultrasonography of Superior Vena Cava, Guidance (ICD-10-PCS; 2020-03-03)
PROC: 05HY33Z Insertion of Infusion Device into Upper Vein, Percutaneous Approach (ICD-10-PCS; 2020-03-15)
PROC: 5A1D70Z Performance of Urinary Filtration, Intermittent, Less than 6 Hours Per Day (ICD-10-PCS; 2020-03-16)
PROC: 5A12012 Performance of Cardiac Output, Single, Manual (ICD-10-PCS; 2020-03-18)
PROC: 5A2204Z Restoration of Cardiac Rhythm, Single (ICD-10-PCS; 2020-03-18)
DX: A41.89 Other specified sepsis (principal); U07.1 COVID-19; J12.82 Pneumonia due to coronavirus disease 2019; E87.2 Acidosis; J96.02 Acute respiratory failure with hypercapnia; J96.01 Acute respiratory failure with hypoxia; E87.1 Hypo-osmolality and hyponatremia; I21.A1 Myocardial infarction type 2; N17.0 Acute kidney failure with tubular necrosis; N18.9 Chronic kidney disease, unspecified; N13.9 Obstructive and reflux uropathy, unspecified; I50.32 Chronic diastolic (congestive) heart failure; R65.21 Severe sepsis with septic shock; R74.01 Elevation of levels of liver transaminase levels; B37.49 Other urogenital candidiasis; J15.9 Unspecified bacterial pneumonia; D64.9 Anemia, unspecified; Z66 Do not resuscitate
CPT/HCPCS: 31720; 36415; 36600; 71045-TC; 76770-TC; 80048-TC; 80053-TC; 80061-TC; 80076-TC; 80202-TC; 81001; 82248-TC; 82533; 82550-TC; 82570-TC; 82728-TC; 82803-TC; 82962-TC; 83605-TC; 83615-TC; 83735-TC; 83880; 84100-TC; 84155-TC; 84300-TC; 84478-TC; 84484-TC; 85025-TC; 85378-TC; 85385-TC; 85610-TC; 85730-TC; 86140-TC; 86704; 86705; 86706; 86850-TC; 87040-TC; 87070-TC; 87081-TC; 87086-TC; 87340; 90935-TC; 94002-TC; 94003-TC; 94760-TC; 94762-TC; 94799-TC; A4216; C1750; C1751; G0378; J0171; J0456; J0692; J0696; J1100; J1644; J1720; J2060; J2185; J2248; J2250; J2370; J2704; J3010; J3370; J3490; J7030; J7040; J7042; J7050; J7060; J7070; P9017-BL; P9047; U0003